=== PATIENT | female | born 1975 | race Caucasian/White ===

== ENCOUNTER 2020-07-04 14:56 | Emergency (ER) | payer SELFPAY ==
[2020-07-04] MEDS ORDERED: diphenhydrAMINE 25 MG Tab PO ONE (14:57)
[2020-07-04] MEDS ORDERED: Sodium Chloride 0.9% 10 ML Syringe FLUSH PRN (15:21)
[2020-07-04] MEDS ORDERED: Sodium Chloride 0.9% 1,000 ML IV ONE (15:21)
[2020-07-04 15:49] LABS: BASE EXCESS ARTERIAL 3 mmol/L ((-2)-(+3)); BICARBONATE,ARTERIAL 24.8 mmol/L (22-26); O2 DELIVERY DEVICE ROOM AIR; O2 SATURATION ARTERIAL 99 % (95-100); PO2 ARTERIAL 99 mmHg (70-100)
--- NOTE | 2020-07-04 15:49 | CR ---
PROCEDURE INFORMATION: Exam: XR Chest, 1 View Exam date and time: 07/04/2020 3:29 PM Age: 45 years old Clinical indication: Other: Chest pain; Additional info: Chest tightness, shortness of breath TECHNIQUE: Imaging protocol: XR of the chest Views: 1 view. COMPARISON: Prior chest radiographs of 05/26/ FINDINGS: Lungs: Hazy increased density in the left lung base laterally. This could be due to mild ground-glass airspace disease versus artifact from overlying soft tissues. Lungs otherwise appear clear radiographically. Lungs are well inflated. Pleural space: No pleural effusions. No pneumothorax. Heart/Mediastinum: No significant cardiomegaly. Bones/joints: No acute abnormality. IMPRESSION: 1. Artifact versus mild ground-glass airspace disease in the left lung base. Recommend clinical correlation. 2. Otherwise, no significant acute abnormality. 3. See above for remaining findings.
[2020-07-04 16:06] LABS: ANION GAP 10.4 mEq/L (7-13); CHLORIDE,CL 89 mmol/L (98-107); SODIUM,NA 125 mmol/L (136-145)
[2020-07-04] MEDS ORDERED: Insulin Regular, Human 100 Units/ML 3 ML Vial IV ONE ×2 (16:26→17:03)
--- NOTE | 2020-07-04 17:14 | EDM.PDOC ---
Scribed by Aleena Otto 07/04/20 1402 for Shashi Gonzalez MD ED HPI GENERAL MEDICAL PROBLEM - General Chief Complaint: General Stated Complaint: BITES ON LEGS AND ALL OVER, TIGHTNESS IN CHEST Time Seen by Provider: 07/04/20 15:11 Source of Information: Reports: Patient, RN, RN Notes Reviewed History Limitations: Reports: No Limitations - History of Present Illness INITIAL COMMENTS - FREE TEXT/NARRATIVE: Patient presents to the ED via POV stating she has bites all over, legs, arms, and belly. States they itch. She has been without her insulin for "at least 2 months". Bedside glucose >500. States she thinks about a month and a half ago she may have had a heart attack or stroke, did not go in to be seen, but states since then she has had some pain in her right arm, hand, chest tightness, and the right leg "doesn't function right, nanci drags". Feet have been swollen. Onset: Gradual Duration: Getting Worse Location: Reports: Generalized Quality: Reports: Ache Severity: Severe Improves with: Reports: None Worsens with: Reports: None Associated Symptoms: Reports: No Other Symptoms - Related Data Allergies Allergy/AdvReac Type Severity Reaction Status Date / Time No Known Allergies Allergy Verified 07/04/20 15:07 Home Meds: Home Meds Insulin Aspart [NovoLOG] 6 units SQ ASDIRECTED 07/04/20 [History] Insulin Glarg,Human.Rec.Analog [Lantus] 10 units SQ BEDTIME 07/04/20 [History] ED ROS GENERAL - Review of Systems Review Of Systems: Comprehensive ROS is negative, except as noted in HPI. ED EXAM, GENERAL - Physical Exam Exam: See Below Exam Limited By: Other (Appears much older than stated age.) General Appearance: Alert, No Apparent Distress, Anxious, Other (Chronically ill appearing.) Eye Exam: Bilateral Eye: EOMI, Normal Inspection, PERRL Ears: Normal External Exam, Hearing Grossly Normal Nose: Normal Inspection, Normal Mucosa, No Blood Throat/Mouth: Normal Lips, Normal Oropharynx, Normal Voice, No Airway Compromise, Other (Dry oral mucosa. Missing several teeth.) Head: Atraumatic, Normocephalic Neck: Normal Inspection, Supple, Non-Tender, Full Range of Motion Respiratory/Chest: No Respiratory Distress, Lungs Clear, Normal Breath Sounds, No Accessory Muscle Use, Chest Non-Tender, Decreased Breath Sounds, Prolonged Expiration. No: Crackles, Rales, Rhonchi, Wheezing, Stridor Cardiovascular: Normal Peripheral Pulses, Regular Rate, Rhythm, No Edema, No Gallop, No JVD, No Murmur, No Rub GI/Abdominal: Normal Bowel Sounds, Soft, Non-Tender Back Exam: Normal Inspection Extremities: Normal Inspection, Normal Range of Motion, Non-Tender, Normal Capillary Refill, No Pedal Edema Neurological: Alert, Oriented, No Motor/Sensory Deficits Psychiatric: Normal Mood Skin Exam: Warm, Dry, Other (Multiple insect bites that appear excoriated.) EKG INTERPRETATION EKG Date: 07/04/20 Time: 15:34 Rhythm: Other (sinus rhythm) Rate (Beats/Min): 67 [place]: Normal P-Wave: Present QRS: Normal ST-T: Normal QT: Normal Comparison: NA - No Prior EKG Course - Vital Signs Last Recorded V/S: Last Vital Signs Temp 97.5 F 07/04/20 15:10 Pulse 77 07/04/20 15:10 Resp 18 07/04/20 15:10 BP 114/69 07/04/20 15:10 Pulse Ox 100 07/04/20 15:10 - Orders/Labs/Meds Orders: Active Orders 24 hr Category Date Time Status Blood Glucose Check, Bedside [] ONETIME Care 07/04/20 15:21 Active Blood Glucose Check, Bedside [] ONETIME Care 07/04/20 16:50 Active EKG 12 Lead [EKG Documentation Completion] [RC] STAT Care 07/04/20 15:20 Active Peripheral IV Care [RC] . DIRECTED Care 07/04/20 15:21 Active CULTURE URINE [RM] Stat Lab 07/04/20 15:24 Received Sodium Chloride 0.9% [Saline Flush] Med 07/04/20 15:21 Active 10 ml FLUSH ASDIRECTED PRN Peripheral IV Insertion Adult [OM.PC] Stat Oth 07/04/20 15:20 Ordered Medication Orders Sodium Chloride (Saline Flush) 10 ml FLUSH ASDIRECTED PRN PRN Reason: Keep Vein Open Last Admin: 07/04/20 15:30 Dose: 10 ml Documented by: NASRA Labs: Laboratory Tests 07/04/20 07/04/20 07/04/20 Range/Units 15:05 15:24 15:24 WBC (5.0-10.0) 10^3/uL RBC (4.2-5.4) 10^6/uL Hgb (12.0-16.0) g/dL Hct (37.0-47.0) % MCV (80-100) fL MCH (27.0-34.0) pg MCHC (33.0-35.0) g/dL Plt Count (150-450) 10^3/uL Neut % (Auto) (42.2-75.2) % Lymph % (Auto) (20.5-50.1) % [place] % (Auto) (2-8) % Eos % (Auto) (1.0-3.0) % Baso % (Auto) (0.0-1.0) % ABG pH (7.35-7.45) ABG pCO2 (35-45) mmHg ABG pO2 (70-100) mmHg ABG HCO3 (22-26) mmol/L ABG O2 Saturation (95-100) % ABG Base Excess ((-2)-(+3)) mmol/L Thai Test O2 Delivery Device Oxygen Flow Rate Sodium (136-145) mmol/L Potassium (3.5-5.1) mmol/L Chloride (98-107) mmol/L Carbon Dioxide (21-32) mmol/L Anion Gap (7-13) mEq/L BUN (7-18) mg/dL Creatinine (0.55-1.02) mg/dL Est Cr Clr Drug Dosing mL/min Estimated GFR (MDRD) BUN/Creatinine Ratio (No establ ref range) Glucose (74-99) mg/dL POC Glucose > 500 H* (70-105) mg/dl Calcium (8.5-10.1) mg/dL Magnesium (1.8-2.4) mg/dL Total Bilirubin (0.2-1.0) mg/dL AST (15-37) U/L ALT (14-59) U/L Alkaline Phosphatase (46-116) U/L Troponin I (0.000-0.056) ng/mL Total Protein (6.4-8.2) g/dL Albumin (3.4-5.0) g/dL Globulin Albumin/Globulin Ratio Urine Color (YELLOW) Urine Appearance (CLEAR) Urine pH (5.0-9.0) Ur Specific [place] (1.005-1.030) Urine Protein (NEGATIVE) Urine Glucose (UA) (NEGATIVE) Urine Ketones (NEGATIVE) Urine Occult Blood (NEGATIVE) Urine Nitrite (NEGATIVE) Urine Bilirubin (NEGATIVE) Urine Urobilinogen (0.2-1.0) mg/dL Ur Leukocyte Esterase (NEGATIVE) Urine RBC /HPF Urine WBC (0-5/HPF) /HPF Ur Epithelial Cells (NOT SEEN) /HPF Urine Bacteria (0-FEW/HPF) /HPF Urine HCG, Qual Negative Urine Opiates Screen Negative (NEGATIVE) Ur Oxycodone Screen Negative (NEGATIVE) Urine Methadone Screen Negative (NEGATIVE) Ur Barbiturates Screen Negative (NEGATIVE) U Tricyclic Antidepress Negative (NEGATIVE) Ur Phencyclidine Scrn Negative (NEGATIVE) Ur Amphetamine Screen Negative (NEGATIVE) U Methamphetamines Scrn Negative (NEGATIVE) Urine MDMA Screen Negative (NEGATIVE) U Benzodiazepines Scrn Negative (NEGATIVE) Urine Cocaine Screen Negative (NEGATIVE) U Marijuana (THC) Screen Negative (NEGATIVE) Ethyl Alcohol (0) mg/dL Ketones 07/04/20 07/04/20 07/04/20 Range/Units 15:24 15:39 15:39 WBC 7.1 (5.0-10.0) 10^3/uL RBC 4.66 (4.2-5.4) 10^6/uL Hgb 12.6 (12.0-16.0) g/dL Hct 35.8 L (37.0-47.0) % MCV 76.8 L (80-100) fL MCH 27.0 (27.0-34.0) pg MCHC 35.2 H (33.0-35.0) g/dL Plt Count 226 (150-450) 10^3/uL Neut % (Auto) 67.8 (42.2-75.2) % Lymph % (Auto) 23.8 (20.5-50.1) % [place] % (Auto) 6.0 (2-8) % Eos % (Auto) 2.0 (1.0-3.0) % Baso % (Auto) 0.4 (0.0-1.0) % ABG pH (7.35-7.45) ABG pCO2 (35-45) mmHg ABG pO2 (70-100) mmHg ABG HCO3 (22-26) mmol/L ABG O2 Saturation (95-100) % ABG Base Excess ((-2)-(+3)) mmol/L Thai Test O2 Delivery Device Oxygen Flow Rate Sodium 125 L (136-145) mmol/L Potassium 4.4 (3.5-5.1) mmol/L Chloride 89 L (98-107) mmol/L Carbon Dioxide 30 (21-32) mmol/L Anion Gap 10.4 (7-13) mEq/L BUN 18 (7-18) mg/dL Creatinine 0.93 (0.55-1.02) mg/dL Est Cr Clr Drug Dosing 74.29 mL/min Estimated GFR (MDRD) > 60 BUN/Creatinine Ratio 19.4 (No establ ref range) Glucose 556 H* (74-99) mg/dL POC Glucose (70-105) mg/dl Calcium 8.9 (8.5-10.1) mg/dL Magnesium 1.8 (1.8-2.4) mg/dL Total Bilirubin 0.3 (0.2-1.0) mg/dL AST 9 L (15-37) U/L ALT 26 (14-59) U/L Alkaline Phosphatase 149 H (46-116) U/L Troponin I < 0.017 (0.000-0.056) ng/mL Total Protein 7.3 (6.4-8.2) g/dL Albumin 3.4 (3.4-5.0) g/dL Globulin 3.9 Albumin/Globulin Ratio 0.9 Urine Color Yellow (YELLOW) Urine Appearance Clear (CLEAR) Urine pH 7.0 (5.0-9.0) Ur Specific [place] 1.015 (1.005-1.030) Urine Protein Negative (NEGATIVE) Urine Glucose (UA) 500 H (NEGATIVE) Urine Ketones Negative (NEGATIVE) Urine Occult Blood Moderate H (NEGATIVE) Urine Nitrite Negative (NEGATIVE) Urine Bilirubin Negative (NEGATIVE) Urine Urobilinogen 0.2 (0.2-1.0) mg/dL Ur Leukocyte Esterase Trace H (NEGATIVE) Urine RBC 0-5 /HPF Urine WBC 0-5 (0-5/HPF) /HPF Ur Epithelial Cells Rare (NOT SEEN) /HPF Urine Bacteria Few (0-FEW/HPF) /HPF Urine HCG, Qual Urine Opiates Screen (NEGATIVE) Ur Oxycodone Screen (NEGATIVE) Urine Methadone Screen (NEGATIVE) Ur Barbiturates Screen (NEGATIVE) U Tricyclic Antidepress (NEGATIVE) Ur Phencyclidine Scrn (NEGATIVE) Ur Amphetamine Screen (NEGATIVE) U Methamphetamines Scrn (NEGATIVE) Urine MDMA Screen (NEGATIVE) U Benzodiazepines Scrn (NEGATIVE) Urine Cocaine Screen (NEGATIVE) U Marijuana (THC) Screen (NEGATIVE) Ethyl Alcohol < 3 (0) mg/dL Ketones Negative 07/04/20 07/04/20 Range/Units 15:50 17:00 WBC (5.0-10.0) 10^3/uL RBC (4.2-5.4) 10^6/uL Hgb (12.0-16.0) g/dL Hct (37.0-47.0) % MCV (80-100) fL MCH (27.0-34.0) pg MCHC (33.0-35.0) g/dL Plt Count (150-450) 10^3/uL Neut % (Auto) (42.2-75.2) % Lymph % (Auto) (20.5-50.1) % [place] % (Auto) (2-8) % Eos % (Auto) (1.0-3.0) % Baso % (Auto) (0.0-1.0) % ABG pH 7.53 H (7.35-7.45) ABG pCO2 30 L (35-45) mmHg ABG pO2 99 (70-100) mmHg ABG HCO3 24.8 (22-26) mmol/L ABG O2 Saturation 99 (95-100) % ABG Base Excess 3 ((-2)-(+3)) mmol/L Thai Test Rb O2 Delivery Device Room air Oxygen Flow Rate 0 Sodium (136-145) mmol/L Potassium (3.5-5.1) mmol/L Chloride (98-107) mmol/L Carbon Dioxide (21-32) mmol/L Anion Gap (7-13) mEq/L BUN (7-18) mg/dL Creatinine (0.55-1.02) mg/dL Est Cr Clr Drug Dosing mL/min Estimated GFR (MDRD) BUN/Creatinine Ratio (No establ ref range) Glucose (74-99) mg/dL POC Glucose 381 H (70-105) mg/dl Calcium (8.5-10.1) mg/dL Magnesium (1.8-2.4) mg/dL Total Bilirubin (0.2-1.0) mg/dL AST (15-37) U/L ALT (14-59) U/L Alkaline Phosphatase (46-116) U/L Troponin I (0.000-0.056) ng/mL Total Protein (6.4-8.2) g/dL Albumin (3.4-5.0) g/dL Globulin Albumin/Globulin Ratio Urine Color (YELLOW) Urine Appearance (CLEAR) Urine pH (5.0-9.0) Ur Specific [place] (1.005-1.030) Urine Protein (NEGATIVE) Urine Glucose (UA) (NEGATIVE) Urine Ketones (NEGATIVE) Urine Occult Blood (NEGATIVE) Urine Nitrite (NEGATIVE) Urine Bilirubin (NEGATIVE) Urine Urobilinogen (0.2-1.0) mg/dL Ur Leukocyte Esterase (NEGATIVE) Urine RBC /HPF Urine WBC (0-5/HPF) /HPF Ur Epithelial Cells (NOT SEEN) /HPF Urine Bacteria (0-FEW/HPF) /HPF Urine HCG, Qual Urine Opiates Screen (NEGATIVE) Ur Oxycodone Screen (NEGATIVE) Urine Methadone Screen (NEGATIVE) Ur Barbiturates Screen (NEGATIVE) U Tricyclic Antidepress (NEGATIVE) Ur Phencyclidine Scrn (NEGATIVE) Ur Amphetamine Screen (NEGATIVE) U Methamphetamines Scrn (NEGATIVE) Urine MDMA Screen (NEGATIVE) U Benzodiazepines Scrn (NEGATIVE) Urine Cocaine Screen (NEGATIVE) U Marijuana (THC) Screen (NEGATIVE) Ethyl Alcohol (0) mg/dL Ketones Meds: Medications Generic Name Dose Route Start Last Admin Trade Name Freq PRN Reason Stop Dose Admin Sodium Chloride 10 ml 07/04/20 15:21 07/04/20 15:30 Saline Flush FLUSH 10 ml ASDIRECTED PRN Administration Keep Vein Open Discontinued Medications Generic Name Dose Route Start Last Admin Trade Name Freq PRN Reason Stop Dose Admin Sodium Chloride 1,000 mls @ 999 mls/hr 07/04/20 15:21 07/04/20 15:47 Normal Saline IV 07/04/20 16:21 999 mls/hr .BOLUS ONE Administration Insulin Human Regular 10 unit 07/04/20 16:26 08/09/20 16:32 Humulin R IV 07/04/20 16:27 10 units ONETIME ONE Administration Insulin Human Regular 5 unit 07/04/20 17:03 Humulin R IV 07/04/20 17:04 ONETIME ONE - Radiology Interpretation [facility]ative[facility] Call: [phone] assistance Online chat: [email or web address] Name: MUKESH GALLEGOS Age: 45Years F Date: 07/04/2020 SSN: -- : [id number] Study: CR CHEST 1V FRONTAL Requesting Physician: SHASHI GONZALEZ Images: 1 Addl Studies: Provided Clinical History: chest tightness, shortness of breath Contrast: Contrast Medium: Contrast Amount: Contrast Method: Page 1 of 2 PROCEDURE INFORMATION: Exam: XR Chest, 1 View Exam date and time: 07/04/2020 3:29 PM Age: 45 years old Clinical indication: Other: Chest pain; Additional info: Chest tightness, sh ortness of breath TECHNIQUE: Imaging protocol: XR of the chest Views: 1 view. COMPARISON: Prior chest radiographs of 05/26/ FINDINGS: Lungs: Hazy increased density in the left lung base laterally. This could be due to mild ground-glass airspace disease versus artifact from overlying soft tissues. Lungs otherwise appear clear radiographically. Lungs are well inflated. Pleural space: No pleural effusions. No pneumothorax. Heart/Mediastinum: No significant cardiomegaly. Bones/joints: No acute abnormality. IMPRESSION: 1. Artifact versus mild ground-glass airspace disease in the left lung base. Recommend clinical correlation. 2. Otherwise, no significant acute abnormality. 3. See above for remaining findings. Thank you for allowing us to participate in the care of your patient. Dictated and Authenticated by: Brenda Mendez MD MUKESH GALLEGOS | Final Radiology Report CONFIDENTIALITY STATEMENT This report is intended only for use by the referring physician, and only in accordance with law. If you received this in error, call [phone]. Page 2 of 2 07/04/2020 3:49 PM Central Time ([place] & [place]) Departure - Departure Time of Disposition: 17:09 Disposition: Home, Self-Care 01 Condition: Fair Clinical Impression: Diabetes mellitus type 2, uncontrolled Qualifiers: Glycemic state: with hyperglycemia Qualified Code(s): E11.65 - Type 2 diabetes mellitus with hyperglycemia Insect bites Qualifiers: Encounter type: initial encounter Site of insect bite: unspecified site Qualified Code(s): W57.XXXA - Bitten or stung by nonvenomous insect and other nonvenomous arthropods, initial encounter - Discharge Information *PRESCRIPTION DRUG MONITORING PROGRAM REVIEWED*: No *COPY OF PRESCRIPTION DRUG MONITORING REPORT IN PATIENT ALICIA: No Instructions: Insect Bite, Adult, [id number], Preventing Mosquito-Borne Illnesses, Type 2 Diabetes Mellitus, Self Care, Adult, [id number], Hyperglycemia, [id number] Forms: ED Department Discharge Additional Instructions: Rx: Benadryl 25mg Call [phone] tomorrow morning, July 04 before 9:00AM to make a same day appointment at [facility] for diabetic and medication management. Sepsis Event Note (ED) - Focused Exam Vital Signs: Vital Signs Temp Pulse Resp BP Pulse Ox 07/04/20 15:10 97.5 F 77 18 114/69 100 - My Orders Last 24 Hours: My Active Orders 07/04/20 15:20 EKG 12 Lead [EKG Documentation Completion] [RC] STAT Peripheral IV Insertion Adult [OM.PC] Stat 07/04/20 15:21 Blood Glucose Check, Bedside [RC] ONETIME Peripheral IV Care [RC] . DIRECTED Sodium Chloride 0.9% [Saline Flush] 10 ml FLUSH ASDIRECTED PRN 07/04/20 15:24 CULTURE URINE [RM] Stat 07/04/20 16:50 Blood Glucose Check, Bedside [RC] ONETIME - Assessment/Plan Last 24 Hours: My Active Orders 07/04/20 15:20 EKG 12 Lead [EKG Documentation Completion] [RC] STAT Peripheral IV Insertion Adult [OM.PC] Stat 07/04/20 15:21 Blood Glucose Check, Bedside [RC] ONETIME Peripheral IV Care [RC] . DIRECTED Sodium Chloride 0.9% [Saline Flush] 10 ml FLUSH ASDIRECTED PRN 07/04/20 15:24 CULTURE URINE [RM] Stat 07/04/20 16:50 Blood Glucose Check, Bedside [RC] ONETIME I have read and agree with the documentation that has been completed regarding this visit. By signing this record, I attest that the documentation was completed in my physical presence and is an accurate record of the encounter.
[2020-07-04] MEDS ORDERED: diphenhydrAMINE 25 MG Tab ONE (17:21)
[2020-07-04 21:24] LABS: O2 FLOW RATE 100
[2020-07-04 21:25] LABS: ALLEN TEST LB
[2020-07-04 21:36] LABS: PCO2 ARTERIAL 30 mmHg (35-45)
== END 2020-07-04 17:34 | disposition home or self-care (01) ==
LOC: DL.ED 14:56
DX: S80.862A Insect bite (nonvenomous), left lower leg, initial encounter (principal); S80.861A Insect bite (nonvenomous), right lower leg, initial encounter; S40.862A Insect bite (nonvenomous) of left upper arm, initial encounter; S40.861A Insect bite (nonvenomous) of right upper arm, initial encounter; S30.861A Insect bite (nonvenomous) of abdominal wall, initial encounter; E11.65 Type 2 diabetes mellitus with hyperglycemia; W57.XXXA Bitten or stung by nonvenomous insect and other nonvenomous arthropods, initial encounter
CPT/HCPCS: 36415; 36600; 71045; 80053; 80305; 80307; 81001; 81025; 82009; 82803; 82962; 83735; 84484; 85025; 87086; 87088; 87186; 93005; 96360; 99284; A9270; J1815; J7030

== ENCOUNTER 2020-09-03 20:04 | Observation (INO) | payer MEDICAID ==
[2020-09-03] MEDS ORDERED: Sodium Chloride 0.9% 1,000 ML IV ONE (20:50)
[2020-09-03] MEDS ORDERED: Insulin Regular, Human 100 Units/ML 3 ML Vial IV ONE (20:50)
[2020-09-03] MEDS ORDERED: Iopamidol 612 MG/ML 100 ML Bottle IVPUSH ONE (20:51)
[2020-09-03] MEDS ORDERED: HYDROmorphone 1 MG/ML Syringe IVPUSH ONE ×2 (20:51→22:52)
[2020-09-03] MEDS ORDERED: Ondansetron 4 MG/2 ML SDV IVPUSH ONE (20:56)
[2020-09-03 20:59] LABS: CHLORIDE,CL 92 mmol/L (98-107); SODIUM,NA 129 mmol/L (136-145)
[2020-09-03] MEDS ORDERED: cefTRIAXone 2 GM in Sodium Chloride 0.9% 100 ML IV ONE (21:56)
--- NOTE | 2020-09-03 21:58 | CT ---
PROCEDURE INFORMATION: Exam: CT Abdomen And Pelvis With Contrast Exam date and time: 09/03/2020 9:22 PM Age: 45 years old Clinical indication: Other: Wbc 16.5; Additional info: Abdominal pain TECHNIQUE: Imaging protocol: Computed tomography of the abdomen and pelvis with intravenous contrast. Radiation optimization: All CT scans at this facility use at least one of these dose optimization techniques: automated exposure control; mA and/or kV adjustment per patient size (includes targeted exams where dose is matched to clinical indication); or iterative reconstruction. Contrast material: [id number]; Contrast volume: 75 ml; Contrast route: INTRAVENOUS (IV); COMPARISON: No relevant prior studies available. FINDINGS: Liver: Mild hepatic steatosis. Gallbladder and bile ducts: Multiple gallstones. Pancreas: Normal. No ductal dilation. Spleen: Normal. No splenomegaly. Adrenals: Minimal nodular thickening right adrenal gland less than 1 cm. Kidneys and ureters: The right kidney is atrophic with respect to the left kidney with the right kidney measuring 9.1 cm and the left kidney measuring 13.7 cm. Stomach and bowel: There is short to moderate length segment of sigmoid wall thickening and inflammation with Katty sigmoid fat stranding. Appendix: No evidence of appendicitis. Intraperitoneal space: Small amount of intraperitoneal fluid. Vasculature: Minimal to moderate atherosclerotic changes of the abdominal aorta and branches. Lymph nodes: Scattered relatively small retroperitoneal lymph nodes. Urinary bladder: The bladder wall is markedly thickened especially anterior probably reactive. Reproductive: In the left adnexa immediately adjacent to the above described inflamed sigmoid colon there is a distended fluid-filled tubular structure which does not appear to represent bowel and may represent a dilated fallopian tube/hydrosalpinx. There is an IUD in place which appears somewhat low in position. 4.2 cm right adnexal cyst with perceptible wall. 2.2 cm complex cystic structure in the left adnexa. Bones/joints: Unremarkable. No acute fracture. Soft tissues: Unremarkable. IMPRESSION: 1. Marked inflammatory changes in the left lower quadrant. Extensive inflammation in the region of the left adnexa where fluid distended tubular structure is identified which may represent hydrosalpinx with possibility of infection/pyosalpinx/pelvic inflammatory disease possible. The adjacent sigmoid colon is also thickened and inflamed. This may be reactive to the adnexal inflammatory changes, however given the presence of a few diverticula in this region, the possibility of additional acute diverticulitis not excluded. 2. Suggest correlation with pelvic ultrasound to better assess the pelvic organs/left adnexa. Also correlate with clinical history. 3. Marked bladder wall thickening nonspecific possibly reactive. 4. IUD in place which appears slightly low in position. 5. Small amount of intraperitoneal fluid. 6. Gallstones. 7. See above for other details.
[2020-09-03] MEDS ORDERED: Azithromycin 250 MG Tab PO ONE (22:54)
--- NOTE | 2020-09-03 23:04 | EDM.PDOC ---
ED HPI GENERAL MEDICAL PROBLEM - General Chief Complaint: Abdominal Pain Stated Complaint: APENDICITIS LEFT SIDE PER PT Time Seen by Provider: 09/03/20 20:15 Source of Information: Reports: Patient, RN History Limitations: Reports: No Limitations - History of Present Illness INITIAL COMMENTS - FREE TEXT/NARRATIVE: ED with c/o let low back and abdominal pain, started yesterday worse tonight. No vomiting. BM's harder lately, Last today. No pain with urination. Has IUD. continual spotting. Left Lower Abdomen Pain Score (Numeric/FACES): 10 - Related Data Allergies Allergy/AdvReac Type Severity Reaction Status Date / Time No Known Allergies Allergy Verified 09/04/20 00:12 Home Meds: Home Meds Insulin Aspart [NovoLOG] See Protocol SQ ASDIRECTED 07/04/20 [History] Insulin Glarg,Human.Rec.Analog [Lantus] 10 units SQ BEDTIME 07/04/20 [History] Aspirin [Aspirin EC] 81 mg PO DAILY 09/04/20 [History] DULoxetine [Cymbalta] 30 mg PO DAILY 09/04/20 [History] Diclofenac Sodium 50 mg PO TID 09/04/20 [History] Simvastatin 20 mg PO BEDTIME 09/04/20 [History] hydrOXYzine HCL [Hydroxyzine HCl] 25 mg PO TID PRN 09/04/20 [History] Past Medical History HEENT History: Reports: None Cardiovascular History: Reports: None Respiratory History: Reports: None Gastrointestinal History: Reports: None Genitourinary History: Reports: None 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: , Other (See Below) Other 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 History: c 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 Musculoskeletal History: Reports: None Neurological History: Reports: Seizure Psychiatric History: Reports: Anxiety, Panic Attack Endocrine/Metabolic History: Reports: Diabetes, Type II Social & Family History - Family History Family Medical History: Noncontributory - Tobacco Use Smoking Status *Q: Current Every Day Smoker Years of Tobacco use: 30 Packs/Tins Daily: 1 - Caffeine Use Caffeine Use: Reports: Coffee - Recreational Drug Use Recreational Drug Use: Yes Drug Use in Last 12 Months: Yes Recreational Drug Type: Reports: Methamphetamine Recreational Drug Use Frequency: Patient Refuses To Answer ED ROS GENERAL - Review of Systems Review Of Systems: Comprehensive ROS is negative, except as noted in HPI. ED EXAM, GI/ABD - Physical Exam Exam: See Below Exam Limited By: No Limitations General Appearance: Alert, Moderate Distress, Thin Eyes: Bilateral: EOMI Ears: Normal External Exam Nose: Normal Inspection Throat/Mouth: Normal Inspection Head: Atraumatic, Normocephalic Neck: Normal Inspection Respiratory/Chest: No Respiratory Distress, Lungs Clear, Normal Breath Sounds Cardiovascular: Normal Peripheral Pulses, Regular Rate, Rhythm GI/Abdominal Exam: Normal Bowel Sounds, Soft, Tender (general greater left lower) (Female) Exam: Normal External Exam, Adnexal Tenderness (mild left), Cervix Motion Tenderness, Vaginal Bleeding (darkd brown small amount) Back Exam: Full Range of Motion Extremities: Normal Range of Motion Neurological: Alert, Oriented, Normal Cognition Psychiatric: Anxious Skin Exam: Warm, Dry, Intact, Wound/Incision (multiple superficial scabs to arms and ankles) Course - Vital Signs Last Recorded V/S: Last Vital Signs Temp 98.6 F 09/04/20 03:41 Pulse 95 09/03/20 23:58 Resp 16 09/03/20 23:58 BP 103/62 09/03/20 23:58 Pulse Ox 99 09/03/20 23:58 - Orders/Labs/Meds Orders: Active Orders 24 hr Category Date Time Status Admission Diagnosis [ADT] Stat ADT 09/03/20 23:20 Ordered Admission Status [Patient Status] [ADT] Routine ADT 09/03/20 23:20 Active CHLAMYDIA AND GONORRHEA BY TMA Stat Lab 09/03/20 20:20 Received CULTURE BLOOD [BC] Stat Lab 09/03/20 20:28 Received CULTURE BLOOD [BC] Stat Lab 09/03/20 20:55 Received CULTURE URINE [RM] Stat Lab 09/03/20 20:30 Received Insulin Regular, Human [HumuLIN R] 100 unit Med 09/03/20 21:58 Active Sodium Chloride 0.9% [Normal Saline] 99 ml IV TITRATE Blood Culture x2 Reflex Set [OM.PC] Stat Oth 09/03/20 20:17 Ordered Medication Orders Acetaminophen (Tylenol) 650 mg PO Q4H PRN PRN Reason: Pain Last Admin: 09/04/20 02:25 Dose: 650 mg Documented by: CAREMOR Dextrose/Water (Dextrose 50% In Water) 25 ml IVPUSH ASDIRECTED PRN PRN Reason: Hypoglycemia Enoxaparin Sodium (Lovenox) 40 mg SUBCUT DAILY [facility] Glucagon (Glucagen) 1 mg IM ONETIME PRN PRN Reason: Hypoglycemia Insulin Human Regular 100 unit (/ Sodium Chloride) 100 mls @ 7.121 mls/hr IV TITRATE ONE; Protocol Stop: 09/04/20 12:00 Last Titration: 09/04/20 02:21 Dose: 0 units/kg/hr, 0 mls/hr Documented by: GUALBERTO Cosigned by: JERMAINE Titration: 09/04/20 01:42 Dose: 0.17 units/kg/hr, 11.9 mls/hr Documented by: GUALBERTO Cosigned by: WILMA Titration: 09/04/20 00:38 Dose: 0.11 units/kg/hr, 7.9 mls/hr Documented by: GUALBERTO Cosigned by: JERMAINE Titration: 09/03/20 23:27 Dose: 0.07 units/kg/hr, 5.3 mls/hr Documented by: DEONNA Cosigned by: WILMA Admin: 09/03/20 22:29 Dose: 0.1 units/kg/hr, 7.121 mls/hr Documented by: ROXANE Cosigned by: DEONNA Piperacillin Sod/Tazobactam (Sod 3.375 gm/ Sodium Chloride) 100 mls @ 200 mls/ hr IV Q6H [facility] Last Infusion: 09/04/20 02:21 Dose: 200 mls/hr Documented by: Admin: 09/04/20 01:44 Dose: 200 mls/hr Documented by: GUALBERTO Insulin Glargine (Lantus) 18 unit SUBCUT BEDTIME [facility] Insulin Human Lispro (Humalog) 0 unit SUBCUT QIDACANDBED [facility]; Protocol Insulin Human Lispro (Humalog) 6 unit SUBCUT WITHMEALSANDBED [facility] Ondansetron HCl (Zofran Odt) 4 mg PO Q6H PRN PRN Reason: nausea, able to take PO Ondansetron HCl (Zofran) 4 mg IVPUSH Q6H PRN PRN Reason: Nausea/Vomiting Last Admin: 09/04/20 02:25 Dose: 4 mg Documented by: GUALBERTO Oxycodone HCl (Oxycodone) 5 mg PO ONETIME PRN PRN Reason: Pain Last Admin: 09/04/20 03:35 Dose: 5 mg Documented by: CAREMOR Senna/Docusate Sodium (Senna Plus) 1 tab PO BEDTIME PRN PRN Reason: Constipation Labs: Laboratory Tests 09/03/20 09/03/20 09/03/20 Range/Units 20:28 20:28 20:28 WBC 16.2 H (5.0-10.0) 10^3/uL RBC 5.29 (4.2-5.4) 10^6/uL Hgb 14.9 D (12.0-16.0) g/dL Hct 42.6 (37.0-47.0) % MCV 80.5 D (80-100) fL MCH 28.2 (27.0-34.0) pg MCHC 35.0 (33.0-35.0) g/dL Plt Count 287 (150-450) 10^3/uL Neut % (Auto) 84.3 H (42.2-75.2) % Lymph % (Auto) 8.7 L (20.5-50.1) % [place] % (Auto) 6.5 (2-8) % Eos % (Auto) 0.3 L (1.0-3.0) % Baso % (Auto) 0.2 (0.0-1.0) % Sodium 129 L (136-145) mmol/L Potassium 4.0 (3.5-5.1) mmol/L Chloride 92 L (98-107) mmol/L Carbon Dioxide 25 (21-32) mmol/L Anion Gap 16.0 H (7-13) mEq/L BUN 15 (7-18) mg/dL Creatinine 0.85 (0.55-1.02) mg/dL Est Cr Clr Drug Dosing 81.28 mL/min Estimated GFR (MDRD) > 60 BUN/Creatinine Ratio 17.6 (No establ ref range) Glucose 368 H (74-99) mg/dL POC Glucose (70-105) mg/dl Lactic Acid 1.9 (0.4-2.0) mmol/L Calcium 9.1 (8.5-10.1) mg/dL Total Bilirubin 1.5 H (0.2-1.0) mg/dL AST 19 (15-37) U/L ALT 35 (14-59) U/L Alkaline Phosphatase 101 (46-116) U/L Total Protein 8.1 (6.4-8.2) g/dL Albumin 3.4 (3.4-5.0) g/dL Globulin 4.7 Albumin/Globulin Ratio 0.7 Urine Color (YELLOW) Urine Appearance (CLEAR) Urine pH (5.0-9.0) Ur Specific [place] (1.005-1.030) Urine Protein (NEGATIVE) Urine Glucose (UA) (NEGATIVE) Urine Ketones (NEGATIVE) Urine Occult Blood (NEGATIVE) Urine Nitrite (NEGATIVE) Urine Bilirubin (NEGATIVE) Urine Urobilinogen (0.2-1.0) mg/dL Ur Leukocyte Esterase (NEGATIVE) Urine RBC /HPF Urine WBC (0-5/HPF) /HPF Ur Epithelial Cells (NOT SEEN) /HPF Amorphous Sediment (NOT SEEN) /HPF Urine Bacteria (0-FEW/HPF) /HPF Urine Mucus (NOT SEEN) /LPF Urine Opiates Screen (NEGATIVE) Ur Oxycodone Screen (NEGATIVE) Urine Methadone Screen (NEGATIVE) Ur Barbiturates Screen (NEGATIVE) U Tricyclic Antidepress (NEGATIVE) Ur Phencyclidine Scrn (NEGATIVE) Ur Amphetamine Screen (NEGATIVE) U Methamphetamines Scrn (NEGATIVE) Urine MDMA Screen (NEGATIVE) U Benzodiazepines Scrn (NEGATIVE) Urine Cocaine Screen (NEGATIVE) U Marijuana (THC) Screen (NEGATIVE) SARS CoV-2 RNA Rapid STEFANIE (NEGATIVE) 09/03/20 09/03/20 09/03/20 Range/Units 20:30 20:30 20:33 WBC (5.0-10.0) 10^3/uL RBC (4.2-5.4) 10^6/uL Hgb (12.0-16.0) g/dL Hct (37.0-47.0) % MCV (80-100) fL MCH (27.0-34.0) pg MCHC (33.0-35.0) g/dL Plt Count (150-450) 10^3/uL Neut % (Auto) (42.2-75.2) % Lymph % (Auto) (20.5-50.1) % [place] % (Auto) (2-8) % Eos % (Auto) (1.0-3.0) % Baso % (Auto) (0.0-1.0) % Sodium (136-145) mmol/L Potassium (3.5-5.1) mmol/L Chloride (98-107) mmol/L Carbon Dioxide (21-32) mmol/L Anion Gap (7-13) mEq/L BUN (7-18) mg/dL Creatinine (0.55-1.02) mg/dL Est Cr Clr Drug Dosing mL/min Estimated GFR (MDRD) BUN/Creatinine Ratio (No establ ref range) Glucose (74-99) mg/dL POC Glucose 417 H* (70-105) mg/dl Lactic Acid (0.4-2.0) mmol/L Calcium (8.5-10.1) mg/dL Total Bilirubin (0.2-1.0) mg/dL AST (15-37) U/L ALT (14-59) U/L Alkaline Phosphatase (46-116) U/L Total Protein (6.4-8.2) g/dL Albumin (3.4-5.0) g/dL Globulin Albumin/Globulin Ratio Urine Color Light yellow (YELLOW) Urine Appearance Cloudy (CLEAR) Urine pH 5.0 (5.0-9.0) Ur Specific [place] 1.020 (1.005-1.030) Urine Protein Trace H (NEGATIVE) Urine Glucose (UA) 500 H (NEGATIVE) Urine Ketones 80 H (NEGATIVE) Urine Occult Blood Moderate H (NEGATIVE) Urine Nitrite Positive H (NEGATIVE) Urine Bilirubin Negative (NEGATIVE) Urine Urobilinogen 0.2 (0.2-1.0) mg/dL Ur Leukocyte Esterase Negative (NEGATIVE) Urine RBC 10-20 H /HPF Urine WBC 5-10 H (0-5/HPF) /HPF Ur Epithelial Cells Few (NOT SEEN) /HPF Amorphous Sediment Few (NOT SEEN) /HPF Urine Bacteria Moderate H (0-FEW/HPF) /HPF Urine Mucus Few H (NOT SEEN) /LPF Urine Opiates Screen Negative (NEGATIVE) Ur Oxycodone Screen Negative (NEGATIVE) Urine Methadone Screen Negative (NEGATIVE) Ur Barbiturates Screen Negative (NEGATIVE) U Tricyclic Antidepress Negative (NEGATIVE) Ur Phencyclidine Scrn Negative (NEGATIVE) Ur Amphetamine Screen Negative (NEGATIVE) U Methamphetamines Scrn Positive H (NEGATIVE) Urine MDMA Screen Negative (NEGATIVE) U Benzodiazepines Scrn Negative (NEGATIVE) Urine Cocaine Screen Negative (NEGATIVE) U Marijuana (THC) Screen Negative (NEGATIVE) SARS CoV-2 RNA Rapid STEFANIE (NEGATIVE) 09/03/20 09/03/20 09/03/20 Range/Units 21:45 22:54 23:25 WBC (5.0-10.0) 10^3/uL RBC (4.2-5.4) 10^6/uL Hgb (12.0-16.0) g/dL Hct (37.0-47.0) % MCV (80-100) fL MCH (27.0-34.0) pg MCHC (33.0-35.0) g/dL Plt Count (150-450) 10^3/uL Neut % (Auto) (42.2-75.2) % Lymph % (Auto) (20.5-50.1) % [place] % (Auto) (2-8) % Eos % (Auto) (1.0-3.0) % Baso % (Auto) (0.0-1.0) % Sodium (136-145) mmol/L Potassium (3.5-5.1) mmol/L Chloride (98-107) mmol/L Carbon Dioxide (21-32) mmol/L Anion Gap (7-13) mEq/L BUN (7-18) mg/dL Creatinine (0.55-1.02) mg/dL Est Cr Clr Drug Dosing mL/min Estimated GFR (MDRD) BUN/Creatinine Ratio (No establ ref range) Glucose (74-99) mg/dL POC Glucose 343 H 262 H (70-105) mg/dl Lactic Acid (0.4-2.0) mmol/L Calcium (8.5-10.1) mg/dL Total Bilirubin (0.2-1.0) mg/dL AST (15-37) U/L ALT (14-59) U/L Alkaline Phosphatase (46-116) U/L Total Protein (6.4-8.2) g/dL Albumin (3.4-5.0) g/dL Globulin Albumin/Globulin Ratio Urine Color (YELLOW) Urine Appearance (CLEAR) Urine pH (5.0-9.0) Ur Specific [place] (1.005-1.030) Urine Protein (NEGATIVE) Urine Glucose (UA) (NEGATIVE) Urine Ketones (NEGATIVE) Urine Occult Blood (NEGATIVE) Urine Nitrite (NEGATIVE) Urine Bilirubin (NEGATIVE) Urine Urobilinogen (0.2-1.0) mg/dL Ur Leukocyte Esterase (NEGATIVE) Urine RBC /HPF Urine WBC (0-5/HPF) /HPF Ur Epithelial Cells (NOT SEEN) /HPF Amorphous Sediment (NOT SEEN) /HPF Urine Bacteria (0-FEW/HPF) /HPF Urine Mucus (NOT SEEN) /LPF Urine Opiates Screen (NEGATIVE) Ur Oxycodone Screen (NEGATIVE) Urine Methadone Screen (NEGATIVE) Ur Barbiturates Screen (NEGATIVE) U Tricyclic Antidepress (NEGATIVE) Ur Phencyclidine Scrn (NEGATIVE) Ur Amphetamine Screen (NEGATIVE) U Methamphetamines Scrn (NEGATIVE) Urine MDMA Screen (NEGATIVE) U Benzodiazepines Scrn (NEGATIVE) Urine Cocaine Screen (NEGATIVE) U Marijuana (THC) Screen (NEGATIVE) SARS CoV-2 RNA Rapid STEFANIE Negative (NEGATIVE) Meds: Medications Generic Name Dose Route Start Last Admin Trade Name Freq PRN Reason Stop Dose Admin Acetaminophen 650 mg 09/03/20 23:58 09/04/20 02:25 Tylenol PO 650 mg Q4H PRN Administration Pain Dextrose/Water 25 ml 09/03/20 23:58 Dextrose 50% In Water IVPUSH ASDIRECTED PRN Hypoglycemia Enoxaparin Sodium 40 mg 09/04/20 09:00 Lovenox SUBCUT DAILY [facility] Glucagon 1 mg 09/03/20 23:58 Glucagen IM ONETIME PRN Hypoglycemia Insulin Human Regular 100 unit 100 mls @ 7.121 mls/hr 09/03/20 21:58 09/04/20 02:21 / Sodium Chloride IV 09/04/20 12:00 0 units/kg/hr TITRATE ONE 0 mls/hr Titration Protocol 0.1 UNITS/KG/HR Piperacillin Sod/Tazobactam 100 mls @ 200 mls/hr 09/04/20 01:00 09/04/20 02:21 Sod 3.375 gm/ Sodium Chloride IV Infused Q6H [facility] Infusion Insulin Glargine 18 unit 09/04/20 21:00 Lantus SUBCUT BEDTIME JOSE ANTONIO Insulin Human Lispro 0 unit 09/04/20 07:00 Humalog SUBCUT QIDACANDBED [facility] Protocol Insulin Human Lispro 6 unit 09/04/20 08:00 Humalog SUBCUT WITHMEALSANDBED [facility] Ondansetron HCl 4 mg 10/09/20 23:58 Zofran Odt PO Q6H PRN nausea, able to take PO Ondansetron HCl 4 mg 09/03/20 23:58 09/04/20 02:25 Zofran IVPUSH 4 mg Q6H PRN Administration Nausea/Vomiting Oxycodone HCl 5 mg 09/04/20 02:57 09/04/20 03:35 Oxycodone PO 5 mg ONETIME PRN Administration Pain Senna/Docusate Sodium 1 tab 09/03/20 23:58 Senna Plus PO BEDTIME PRN Constipation Discontinued Medications Generic Name Dose Route Start Last Admin Trade Name Freq PRN Reason Stop Dose Admin Azithromycin 1,000 mg 09/03/20 22:54 09/03/20 23:04 Zithromax PO 09/03/20 22:55 1,000 mg ONETIME ONE Administration Hydromorphone HCl 1 mg 09/03/20 20:51 09/03/20 21:05 Dilaudid IVPUSH 09/03/20 20:52 1 mg ONETIME ONE Administration Hydromorphone HCl 1 mg 09/03/20 22:52 09/03/20 23:04 Dilaudid IVPUSH 09/03/20 22:53 1 mg ONETIME ONE Administration Sodium Chloride 1,000 mls @ 999 mls/hr 09/03/20 20:50 09/03/20 21:04 Normal Saline IV 09/03/20 21:50 999 mls/hr .BOLUS ONE Administration Ceftriaxone Sodium 2 gm/ 100 mls @ 200 mls/hr 09/03/20 21:56 09/03/20 22:09 Sodium Chloride IV 09/03/20 22:25 200 mls/hr ONETIME ONE Administration Insulin Human Regular 10 unit 09/03/20 20:50 09/03/20 21:05 Humulin R IV 09/03/20 20:51 10 unit ONETIME ONE Administration Iopamidol 100 ml 09/03/20 20:51 09/03/20 21:06 Isovue-300 (61%) IVPUSH 09/03/20 20:52 100 ml ONETIME ONE Administration Ondansetron HCl 4 mg 09/03/20 20:56 09/03/20 21:04 Zofran IVPUSH 09/03/20 20:57 4 mg ONETIME ONE Administration Departure - Departure Time of Disposition: 23:03 Disposition: Refer to Observation Condition: Good Clinical Impression: PID (acute pelvic inflammatory disease), Diverticulitis, Positive urine drug screen Diabetes mellitus type 2, uncontrolled Qualifiers: Glycemic state: with hyperglycemia Qualified Code(s): E11.65 - Type 2 diabetes mellitus with hyperglycemia UTI (urinary tract infection) Qualifiers: Urinary tract infection type: acute cystitis Hematuria presence: with hematuria Qualified Code(s): N30.01 - Acute cystitis with hematuria - Discharge Information *PRESCRIPTION DRUG MONITORING PROGRAM REVIEWED*: No *COPY OF PRESCRIPTION DRUG MONITORING REPORT IN PATIENT ALICIA: No Sepsis Event Note (ED) - Evaluation Sepsis Screening Result: No Definite Risk - Focused Exam Vital Signs: Vital Signs Temp Pulse Resp BP Pulse Ox 09/03/20 20:10 97 F 97 18 136/88 96 - My Orders Last 24 Hours: My Active Orders 09/03/20 20:17 Blood Culture x2 Reflex Set [OM.PC] Stat 09/03/20 20:20 CHLAMYDIA AND GONORRHEA BY [facility]MA Stat 09/03/20 20:28 CULTURE BLOOD [BC] Stat 09/03/20 20:30 CULTURE URINE [RM] Stat 09/03/20 20:55 CULTURE BLOOD [BC] Stat 09/03/20 21:58 Insulin Regular, Human [HumuLIN R] 100 unit Sodium Chloride 0.9% [Normal Saline] 99 ml IV TITRATE 09/03/20 23:20 Admission Diagnosis [ADT] Stat Admission Status [Patient Status] [ADT] Routine - Assessment/Plan Last 24 Hours: My Active Orders 09/03/20 20:17 Blood Culture x2 Reflex Set [OM.PC] Stat 09/03/20 20:20 CHLAMYDIA AND GONORRHEA BY TMA Stat 09/03/20 20:28 CULTURE BLOOD [BC] Stat 09/03/20 20:30 CULTURE URINE [RM] Stat 09/03/20 20:55 CULTURE BLOOD [BC] Stat 09/03/20 21:58 Insulin Regular, Human [HumuLIN R] 100 unit Sodium Chloride 0.9% [Normal Saline] 99 ml IV TITRATE 09/03/20 23:20 Admission Diagnosis [ADT] Stat Admission Status [Patient Status] [ADT] Routine
[2020-09-03] MEDS ORDERED: Ondansetron 4 MG/2 ML SDV IVPUSH PRN (23:58)
[2020-09-03] MEDS ORDERED: Ondansetron 4 MG Tab.DIS PO PRN (23:58)
[2020-09-03] MEDS ORDERED: Glucagon,Human Recombinant 1 MG Vial IM PRN (23:58)
[2020-09-03] MEDS ORDERED: 50% Dextrose in Water 50 ML Syringe IVPUSH PRN (23:58)
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
[2020-09-04] MEDS: Piperacillin/Tazobactam 3.375 GM in Sodium Chloride 0.9% 100 ML IV SCH ×4 (01:44→18:36)
[2020-09-04] MEDS: Acetaminophen 325 MG Tab PO PRN ×3 (02:25→18:35)
[2020-09-04] MEDS ORDERED: oxyCODONE 5 MG Tab PO PRN (02:57)
[2020-09-04 06:52] LABS: ANION GAP 14.6 mEq/L (7-13); CHLORIDE,CL 98 mmol/L (98-107); SODIUM,NA 134 mmol/L (136-145)
[2020-09-04] MEDS: Insulin Lispro 100 Units/ML 3 ML Vial SUBCUT SCH ×8 (09:11→21:04)
[2020-09-04] MEDS: Enoxaparin 40 MG/0.4 ML Syringe SUBCUT SCH (09:12)
--- NOTE | 2020-09-04 11:27 | PCM.PN ---
- General Info Date of Service: 09/04/20 Admission Dx/Problem (Free Text): Admission Diagnosis/Problem Admission Diagnosis/Problem Abdominal pain Subjective Update: Patient is a 45-year-old female with medical history significant for type 2 diabetes on insulin regimen, diabetic neuropathy, and anxiety who is admitted for acute diverticulitis, PID, and hyperglycemia. Reports pain is improved. Has nausea this morning but no vomiting. Denies fevers. Always feels cold. No chest pain, shortness of breath, dysuria, or hematuria. No d/c. - Patient Data Vitals - Most Recent: Last Vital Signs Temp 97.9 F 09/04/20 08:18 Pulse 88 09/04/20 08:18 Resp 20 09/04/20 08:18 BP 120/62 09/04/20 08:18 Pulse Ox 99 09/04/20 08:18 Weight - Most Recent: 157 lb I&O - Last 24 Hours: Intake & Output 09/03/20 09/04/20 09/04/20 22:59 06:59 14:59 Intake Total 60 Balance 60 Lab Results Last 24 Hours: Laboratory Results - last 24 hr 09/03/20 09/03/20 09/03/20 Range/Units 20:28 20:28 20:28 WBC 16.2 H (5.0-10.0) 10^3/uL RBC 5.29 (4.2-5.4) 10^6/uL Hgb 14.9 D (12.0-16.0) g/dL Hct 42.6 (37.0-47.0) % MCV 80.5 D (80-100) fL MCH 28.2 (27.0-34.0) pg MCHC 35.0 (33.0-35.0) g/dL Plt Count 287 (150-450) 10^3/uL Neut % (Auto) 84.3 H (42.2-75.2) % Lymph % (Auto) 8.7 L (20.5-50.1) % Cotton % (Auto) 6.5 (2-8) % Eos % (Auto) 0.3 L (1.0-3.0) % Baso % (Auto) 0.2 (0.0-1.0) % Sodium 129 L (136-145) mmol/L Potassium 4.0 (3.5-5.1) mmol/L Chloride 92 L (98-107) mmol/L Carbon Dioxide 25 (21-32) mmol/L Anion Gap 16.0 H (7-13) mEq/L BUN 15 (7-18) mg/dL Creatinine 0.85 (0.55-1.02) mg/dL Est Cr Clr Drug Dosing 81.28 mL/min Estimated GFR (MDRD) > 60 BUN/Creatinine Ratio 17.6 (No establ ref range) Glucose 368 H (74-99) mg/dL POC Glucose (70-105) mg/dl Lactic Acid 1.9 (0.4-2.0) mmol/L Calcium 9.1 (8.5-10.1) mg/dL Phosphorus (2.6-4.7) mg/dL Magnesium (1.8-2.4) mg/dL Total Bilirubin 1.5 H (0.2-1.0) mg/dL Direct Bilirubin (0.0-0.2) mg/dL Indirect Bilirubin AST 19 (15-37) U/L ALT 35 (14-59) U/L Alkaline Phosphatase 101 (46-116) U/L Total Protein 8.1 (6.4-8.2) g/dL Albumin 3.4 (3.4-5.0) g/dL Globulin 4.7 Albumin/Globulin Ratio 0.7 Urine Color (YELLOW) Urine Appearance (CLEAR) Urine pH (5.0-9.0) Ur Specific Hillister (1.005-1.030) Urine Protein (NEGATIVE) Urine Glucose (UA) (NEGATIVE) Urine Ketones (NEGATIVE) Urine Occult Blood (NEGATIVE) Urine Nitrite (NEGATIVE) Urine Bilirubin (NEGATIVE) Urine Urobilinogen (0.2-1.0) mg/dL Ur Leukocyte Esterase (NEGATIVE) Urine RBC /HPF Urine WBC (0-5/HPF) /HPF Ur Epithelial Cells (NOT SEEN) /HPF Amorphous Sediment (NOT SEEN) /HPF Urine Bacteria (0-FEW/HPF) /HPF Urine Mucus (NOT SEEN) /LPF Urine Opiates Screen (NEGATIVE) Ur Oxycodone Screen (NEGATIVE) Urine Methadone Screen (NEGATIVE) Ur Barbiturates Screen (NEGATIVE) U Tricyclic Antidepress (NEGATIVE) Ur Phencyclidine Scrn (NEGATIVE) Ur Amphetamine Screen (NEGATIVE) U Methamphetamines Scrn (NEGATIVE) Urine MDMA Screen (NEGATIVE) U Benzodiazepines Scrn (NEGATIVE) Urine Cocaine Screen (NEGATIVE) U Marijuana (THC) Screen (NEGATIVE) HIV-1 Antibody (NONREACTIVE) HIV-2 Antibody (NONREACTIVE) HIV P24 Antigen (NONREACTIVE) SARS CoV-2 RNA Rapid STEFANIE (NEGATIVE) 09/03/20 09/03/20 09/03/20 Range/Units 20:30 20:30 20:33 WBC (5.0-10.0) 10^3/uL RBC (4.2-5.4) 10^6/uL Hgb (12.0-16.0) g/dL Hct (37.0-47.0) % MCV (80-100) fL MCH (27.0-34.0) pg MCHC (33.0-35.0) g/dL Plt Count (150-450) 10^3/uL Neut % (Auto) (42.2-75.2) % Lymph % (Auto) (20.5-50.1) % Cotton % (Auto) (2-8) % Eos % (Auto) (1.0-3.0) % Baso % (Auto) (0.0-1.0) % Sodium (136-145) mmol/L Potassium (3.5-5.1) mmol/L Chloride (98-107) mmol/L Carbon Dioxide (21-32) mmol/L Anion Gap (7-13) mEq/L BUN (7-18) mg/dL Creatinine (0.55-1.02) mg/dL Est Cr Clr Drug Dosing mL/min Estimated GFR (MDRD) BUN/Creatinine Ratio (No establ ref range) Glucose (74-99) mg/dL POC Glucose 417 H* (70-105) mg/dl Lactic Acid (0.4-2.0) mmol/L Calcium (8.5-10.1) mg/dL Phosphorus (2.6-4.7) mg/dL Magnesium (1.8-2.4) mg/dL Total Bilirubin (0.2-1.0) mg/dL Direct Bilirubin (0.0-0.2) mg/dL Indirect Bilirubin AST (15-37) U/L ALT (14-59) U/L Alkaline Phosphatase (46-116) U/L Total Protein (6.4-8.2) g/dL Albumin (3.4-5.0) g/dL Globulin Albumin/Globulin Ratio Urine Color Light yellow (YELLOW) Urine Appearance Cloudy (CLEAR) Urine pH 5.0 (5.0-9.0) Ur Specific Hill[place] 1.020 (1.005-1.030) Urine Protein Trace H (NEGATIVE) Urine Glucose (UA) 500 H (NEGATIVE) Urine Ketones 80 H (NEGATIVE) Urine Occult Blood Moderate H (NEGATIVE) Urine Nitrite Positive H (NEGATIVE) Urine Bilirubin Negative (NEGATIVE) Urine Urobilinogen 0.2 (0.2-1.0) mg/dL Ur Leukocyte Esterase Negative (NEGATIVE) Urine RBC 10-20 H /HPF Urine WBC 5-10 H (0-5/HPF) /HPF Ur Epithelial Cells Few (NOT SEEN) /HPF Amorphous Sediment Few (NOT SEEN) /HPF Urine Bacteria Moderate H (0-FEW/HPF) /HPF Urine Mucus Few H (NOT SEEN) /LPF Urine Opiates Screen Negative (NEGATIVE) Ur Oxycodone Screen Negative (NEGATIVE) Urine Methadone Screen Negative (NEGATIVE) Ur Barbiturates Screen Negative (NEGATIVE) U Tricyclic Antidepress Negative (NEGATIVE) Ur Phencyclidine Scrn Negative (NEGATIVE) Ur Amphetamine Screen Negative (NEGATIVE) U Methamphetamines Scrn Positive H (NEGATIVE) Urine MDMA Screen Negative (NEGATIVE) U Benzodiazepines Scrn Negative (NEGATIVE) Urine Cocaine Screen Negative (NEGATIVE) U Marijuana (THC) Screen Negative (NEGATIVE) HIV-1 Antibody (NONREACTIVE) HIV-2 Antibody (NONREACTIVE) HIV P24 Antigen (NONREACTIVE) SARS CoV-2 RNA Rapid STEFANIE (NEGATIVE) 09/03/20 09/03/20 09/03/20 Range/Units 21:45 22:54 23:25 WBC (5.0-10.0) 10^3/uL RBC (4.2-5.4) 10^6/uL Hgb (12.0-16.0) g/dL Hct (37.0-47.0) % MCV (80-100) fL MCH (27.0-34.0) pg MCHC (33.0-35.0) g/dL Plt Count (150-450) 10^3/uL Neut % (Auto) (42.2-75.2) % Lymph % (Auto) (20.5-50.1) % Cotton % (Auto) (2-8) % Eos % (Auto) (1.0-3.0) % Baso % (Auto) (0.0-1.0) % Sodium (136-145) mmol/L Potassium (3.5-5.1) mmol/L Chloride (98-107) mmol/L Carbon Dioxide (21-32) mmol/L Anion Gap (7-13) mEq/L BUN (7-18) mg/dL Creatinine (0.55-1.02) mg/dL Est Cr Clr Drug Dosing mL/min Estimated GFR (MDRD) BUN/Creatinine Ratio (No establ ref range) Glucose (74-99) mg/dL POC Glucose 343 H 262 H (70-105) mg/dl Lactic Acid (0.4-2.0) mmol/L Calcium (8.5-10.1) mg/dL Phosphorus (2.6-4.7) mg/dL Magnesium (1.8-2.4) mg/dL Total Bilirubin (0.2-1.0) mg/dL Direct Bilirubin (0.0-0.2) mg/dL Indirect Bilirubin AST (15-37) U/L ALT (14-59) U/L Alkaline Phosphatase (46-116) U/L Total Protein (6.4-8.2) g/dL Albumin (3.4-5.0) g/dL Globulin Albumin/Globulin Ratio Urine Color (YELLOW) Urine Appearance (CLEAR) Urine pH (5.0-9.0) Ur Specific Hill[place] (1.005-1.030) Urine Protein (NEGATIVE) Urine Glucose (UA) (NEGATIVE) Urine Ketones (NEGATIVE) Urine Occult Blood (NEGATIVE) Urine Nitrite (NEGATIVE) Urine Bilirubin (NEGATIVE) Urine Urobilinogen (0.2-1.0) mg/dL Ur Leukocyte Esterase (NEGATIVE) Urine RBC /HPF Urine WBC (0-5/HPF) /HPF Ur Epithelial Cells (NOT SEEN) /HPF Amorphous Sediment (NOT SEEN) /HPF Urine Bacteria (0-FEW/HPF) /HPF Urine Mucus (NOT SEEN) /LPF Urine Opiates Screen (NEGATIVE) Ur Oxycodone Screen (NEGATIVE) Urine Methadone Screen (NEGATIVE) Ur Barbiturates Screen (NEGATIVE) U Tricyclic Antidepress (NEGATIVE) Ur Phencyclidine Scrn (NEGATIVE) Ur Amphetamine Screen (NEGATIVE) U Methamphetamines Scrn (NEGATIVE) Urine MDMA Screen (NEGATIVE) U Benzodiazepines Scrn (NEGATIVE) Urine Cocaine Screen (NEGATIVE) U Marijuana (THC) Screen (NEGATIVE) HIV-1 Antibody (NONREACTIVE) HIV-2 Antibody (NONREACTIVE) HIV P24 Antigen (NONREACTIVE) SARS CoV-2 RNA Rapid STEFANIE Negative (NEGATIVE) 09/04/20 09/04/20 09/04/20 Range/Units 00:35 01:35 02:18 WBC (5.0-10.0) 10^3/uL RBC (4.2-5.4) 10^6/uL Hgb (12.0-16.0) g/dL Hct (37.0-47.0) % MCV (80-100) fL MCH (27.0-34.0) pg MCHC (33.0-35.0) g/dL Plt Count (150-450) 10^3/uL Neut % (Auto) (42.2-75.2) % Lymph % (Auto) (20.5-50.1) % Cotton % (Auto) (2-8) % Eos % (Auto) (1.0-3.0) % Baso % (Auto) (0.0-1.0) % Sodium (136-145) mmol/L Potassium (3.5-5.1) mmol/L Chloride (98-107) mmol/L Carbon Dioxide (21-32) mmol/L Anion Gap (7-13) mEq/L BUN (7-18) mg/dL Creatinine (0.55-1.02) mg/dL Est Cr Clr Drug Dosing mL/min Estimated GFR (MDRD) BUN/Creatinine Ratio (No establ ref range) Glucose (74-99) mg/dL POC Glucose 237 H 228 H 140 H (70-105) mg/dl Lactic Acid (0.4-2.0) mmol/L Calcium (8.5-10.1) mg/dL Phosphorus (2.6-4.7) mg/dL Magnesium (1.8-2.4) mg/dL Total Bilirubin (0.2-1.0) mg/dL Direct Bilirubin (0.0-0.2) mg/dL Indirect Bilirubin AST (15-37) U/L ALT (14-59) U/L Alkaline Phosphatase (46-116) U/L Total Protein (6.4-8.2) g/dL Albumin (3.4-5.0) g/dL Globulin Albumin/Globulin Ratio Urine Color (YELLOW) Urine Appearance (CLEAR) Urine pH (5.0-9.0) Ur Specific [place] (1.005-1.030) Urine Protein (NEGATIVE) Urine Glucose (UA) (NEGATIVE) Urine Ketones (NEGATIVE) Urine Occult Blood (NEGATIVE) Urine Nitrite (NEGATIVE) Urine Bilirubin (NEGATIVE) Urine Urobilinogen (0.2-1.0) mg/dL Ur Leukocyte Esterase (NEGATIVE) Urine RBC /HPF Urine WBC (0-5/HPF) /HPF Ur Epithelial Cells (NOT SEEN) /HPF Amorphous Sediment (NOT SEEN) /HPF Urine Bacteria (0-FEW/HPF) /HPF Urine Mucus (NOT SEEN) /LPF Urine Opiates Screen (NEGATIVE) Ur Oxycodone Screen (NEGATIVE) Urine Methadone Screen (NEGATIVE) Ur Barbiturates Screen (NEGATIVE) U Tricyclic Antidepress (NEGATIVE) Ur Phencyclidine Scrn (NEGATIVE) Ur Amphetamine Screen (NEGATIVE) U Methamphetamines Scrn (NEGATIVE) Urine MDMA Screen (NEGATIVE) U Benzodiazepines Scrn (NEGATIVE) Urine Cocaine Screen (NEGATIVE) U Marijuana (THC) Screen (NEGATIVE) HIV-1 Antibody (NONREACTIVE) HIV-2 Antibody (NONREACTIVE) HIV P24 Antigen (NONREACTIVE) SARS CoV-2 RNA Rapid STEFANIE (NEGATIVE) 09/04/20 09/04/20 09/04/20 Range/Units 03:28 05:45 05:45 WBC 12.8 H (5.0-10.0) 10^3/uL RBC 4.35 (4.2-5.4) 10^6/uL Hgb 12.3 D (12.0-16.0) g/dL Hct 35.4 L (37.0-47.0) % MCV 81.4 (80-100) fL MCH 28.3 (27.0-34.0) pg MCHC 34.7 (33.0-35.0) g/dL Plt Count 225 (150-450) 10^3/uL Neut % (Auto) (42.2-75.2) % Lymph % (Auto) (20.5-50.1) % Cotton % (Auto) (2-8) % Eos % (Auto) (1.0-3.0) % Baso % (Auto) (0.0-1.0) % Sodium 134 L (136-145) mmol/L Potassium 3.6 (3.5-5.1) mmol/L Chloride 98 (98-107) mmol/L Carbon Dioxide 25 (21-32) mmol/L Anion Gap 14.6 H (7-13) mEq/L BUN 14 (7-18) mg/dL Creatinine 0.66 (0.55-1.02) mg/dL Est Cr Clr Drug Dosing 106.63 mL/min Estimated GFR (MDRD) > 60 BUN/Creatinine Ratio (No establ ref range) Glucose 170 H (74-99) mg/dL POC Glucose 124 H (70-105) mg/dl Lactic Acid (0.4-2.0) mmol/L Calcium 8.4 L (8.5-10.1) mg/dL Phosphorus 3.1 (2.6-4.7) mg/dL Magnesium 1.8 (1.8-2.4) mg/dL Total Bilirubin 0.7 (0.2-1.0) mg/dL Direct Bilirubin 0.2 (0.0-0.2) mg/dL Indirect Bilirubin 0.5 AST 50 H (15-37) U/L ALT 44 (14-59) U/L Alkaline Phosphatase 92 (46-116) U/L Total Protein 6.5 (6.4-8.2) g/dL Albumin 2.6 L (3.4-5.0) g/dL Globulin 3.9 Albumin/Globulin Ratio 0.67 Urine Color (YELLOW) Urine Appearance (CLEAR) Urine pH (5.0-9.0) Ur Specific Hillister (1.005-1.030) Urine Protein (NEGATIVE) Urine Glucose (UA) (NEGATIVE) Urine Ketones (NEGATIVE) Urine Occult Blood (NEGATIVE) Urine Nitrite (NEGATIVE) Urine Bilirubin (NEGATIVE) Urine Urobilinogen (0.2-1.0) mg/dL Ur Leukocyte Esterase (NEGATIVE) Urine RBC /HPF Urine WBC (0-5/HPF) /HPF Ur Epithelial Cells (NOT SEEN) /HPF Amorphous Sediment (NOT SEEN) /HPF Urine Bacteria (0-FEW/HPF) /HPF Urine Mucus (NOT SEEN) /LPF Urine Opiates Screen (NEGATIVE) Ur Oxycodone Screen (NEGATIVE) Urine Methadone Screen (NEGATIVE) Ur Barbiturates Screen (NEGATIVE) U Tricyclic Antidepress (NEGATIVE) Ur Phencyclidine Scrn (NEGATIVE) Ur Amphetamine Screen (NEGATIVE) U Methamphetamines Scrn (NEGATIVE) Urine MDMA Screen (NEGATIVE) U Benzodiazepines Scrn (NEGATIVE) Urine Cocaine Screen (NEGATIVE) U Marijuana (THC) Screen (NEGATIVE) HIV-1 Antibody (NONREACTIVE) HIV-2 Antibody (NONREACTIVE) HIV P24 Antigen (NONREACTIVE) SARS CoV-2 RNA Rapid STEFANIE (NEGATIVE) 09/04/20 09/04/20 09/04/20 Range/Units 05:45 08:01 11:06 WBC (5.0-10.0) 10^3/uL RBC (4.2-5.4) 10^6/uL Hgb (12.0-16.0) g/dL Hct (37.0-47.0) % MCV (80-100) fL MCH (27.0-34.0) pg MCHC (33.0-35.0) g/dL Plt Count (150-450) 10^3/uL Neut % (Auto) (42.2-75.2) % Lymph % (Auto) (20.5-50.1) % Cotton % (Auto) (2-8) % Eos % (Auto) (1.0-3.0) % Baso % (Auto) (0.0-1.0) % Sodium (136-145) mmol/L Potassium (3.5-5.1) mmol/L Chloride (98-107) mmol/L Carbon Dioxide (21-32) mmol/L Anion Gap (7-13) mEq/L BUN (7-18) mg/dL Creatinine (0.55-1.02) mg/dL Est Cr Clr Drug Dosing mL/min Estimated GFR (MDRD) BUN/Creatinine Ratio (No establ ref range) Glucose (74-99) mg/dL POC Glucose 199 H 237 H (70-105) mg/dl Lactic Acid (0.4-2.0) mmol/L Calcium (8.5-10.1) mg/dL Phosphorus (2.6-4.7) mg/dL Magnesium (1.8-2.4) mg/dL Total Bilirubin (0.2-1.0) mg/dL Direct Bilirubin (0.0-0.2) mg/dL Indirect Bilirubin AST (15-37) U/L ALT (14-59) U/L Alkaline Phosphatase (46-116) U/L Total Protein (6.4-8.2) g/dL Albumin (3.4-5.0) g/dL Globulin Albumin/Globulin Ratio Urine Color (YELLOW) Urine Appearance (CLEAR) Urine pH (5.0-9.0) Ur Specific Hillister (1.005-1.030) Urine Protein (NEGATIVE) Urine Glucose (UA) (NEGATIVE) Urine Ketones (NEGATIVE) Urine Occult Blood (NEGATIVE) Urine Nitrite (NEGATIVE) Urine Bilirubin (NEGATIVE) Urine Urobilinogen (0.2-1.0) mg/dL Ur Leukocyte Esterase (NEGATIVE) Urine RBC /HPF Urine WBC (0-5/HPF) /HPF Ur Epithelial Cells (NOT SEEN) /HPF Amorphous Sediment (NOT SEEN) /HPF Urine Bacteria (0-FEW/HPF) /HPF Urine Mucus (NOT SEEN) /LPF Urine Opiates Screen (NEGATIVE) Ur Oxycodone Screen (NEGATIVE) Urine Methadone Screen (NEGATIVE) Ur Barbiturates Screen (NEGATIVE) U Tricyclic Antidepress (NEGATIVE) Ur Phencyclidine Scrn (NEGATIVE) Ur Amphetamine Screen (NEGATIVE) U Methamphetamines Scrn (NEGATIVE) Urine MDMA Screen (NEGATIVE) U Benzodiazepines Scrn (NEGATIVE) Urine Cocaine Screen (NEGATIVE) U Marijuana (THC) Screen (NEGATIVE) HIV-1 Antibody Non-reactive (NONREACTIVE) HIV-2 Antibody Non-reactive (NONREACTIVE) HIV P24 Antigen Non-reactive (NONREACTIVE) SARS CoV-2 RNA Rapid STEFANIE (NEGATIVE) Antwon Results Last 24 Hours: Microbiology 09/03/20 22:53 Wet Prep - Final Vagina Med Orders - Current: Current Medications Acetaminophen (Tylenol) 650 mg PO Q4H PRN PRN Reason: Pain Last Admin: 09/04/20 02:25 Dose: 650 mg Documented by: Dextrose/Water (Dextrose 50% In Water) 25 ml IVPUSH ASDIRECTED PRN PRN Reason: Hypoglycemia Enoxaparin Sodium (Lovenox) 40 mg SUBCUT DAILY JOSE ANTONIO Last Admin: 09/04/20 09:12 Dose: 40 mg Documented by: Glucagon (Glucagen) 1 mg IM ONETIME PRN PRN Reason: Hypoglycemia Insulin Human Regular 100 unit (/ Sodium Chloride) 100 mls @ 7.121 mls/hr IV TITRATE ONE; Protocol Stop: 10/10/20 12:00 Last Titration: 09/04/20 02:21 Dose: 0 units/kg/hr, 0 mls/hr Documented by: Piperacillin Sod/Tazobactam (Sod 3.375 gm/ Sodium Chloride) 100 mls @ 200 mls/hr IV Q6H COUNTS INCLUDE 234 BEDS AT THE [facility] Last Admin: 09/04/20 06:25 Dose: 200 mls/hr Documented by: Insulin Glargine (Lantus) 18 unit SUBCUT BEDTIME COUNTS INCLUDE 234 BEDS AT THE [facility] Insulin Human Lispro (Humalog) 0 unit SUBCUT QIDACANDBED COUNTS INCLUDE 234 BEDS AT THE [facility]; Protocol Last Admin: 09/04/20 09:12 Dose: 3 units Documented by: Insulin Human Lispro (Humalog) 6 unit SUBCUT WITHMEALSANDBED COUNTS INCLUDE 234 BEDS AT THE [facility] Last Admin: 09/04/20 09:11 Dose: 6 units Documented by: Ondansetron HCl (Zofran Odt) 4 mg PO Q6H PRN PRN Reason: nausea, able to take PO Ondansetron HCl (Zofran) 4 mg IVPUSH Q6H PRN PRN Reason: Nausea/Vomiting Last Admin: 09/04/20 02:25 Dose: 4 mg Documented by: Oxycodone HCl (Oxycodone) 5 mg PO ONETIME PRN PRN Reason: Pain Last Admin: 09/04/20 03:35 Dose: 5 mg Documented by: Senna/Docusate Sodium (Senna Plus) 1 tab PO BEDTIME PRN PRN Reason: Constipation Discontinued Medications Azithromycin (Zithromax) 1,000 mg PO ONETIME ONE Stop: 09/03/20 22:55 Last Admin: 09/03/20 23:04 Dose: 1,000 mg Documented by: Hydromorphone HCl (Dilaudid) 1 mg IVPUSH ONETIME ONE Stop: 09/03/20 20:52 Last Admin: 09/03/20 21:05 Dose: 1 mg Documented by: Hydromorphone HCl (Dilaudid) 1 mg IVPUSH ONETIME ONE Stop: 09/03/20 22:53 Last Admin: 09/03/20 23:04 Dose: 1 mg Documented by: Sodium Chloride (Normal Saline) 1,000 mls @ 999 mls/hr IV .BOLUS ONE Stop: 09/03/20 21:50 Last Admin: 09/03/20 21:04 Dose: 999 mls/hr Documented by: Ceftriaxone Sodium 2 gm/ (Sodium Chloride) 100 mls @ 200 mls/hr IV ONETIME ONE Stop: 09/03/20 22:25 Last Admin: 09/03/20 22:09 Dose: 200 mls/hr Documented by: Insulin Human Regular (Humulin R) 10 unit IV ONETIME ONE Stop: 09/03/20 20:51 Last Admin: 09/03/20 21:05 Dose: 10 unit Documented by: Iopamidol (Isovue-300 (61%)) 100 ml IVPUSH ONETIME ONE Stop: 09/03/20 20:52 Last Admin: 09/03/20 21:06 Dose: 100 ml Documented by: Ondansetron HCl (Zofran) 4 mg IVPUSH ONETIME ONE Stop: 09/03/20 20:57 Last Admin: 09/03/20 21:04 Dose: 4 mg Documented by: - Exam General: Alert, Oriented, Cooperative, Mild Distress HEENT: Pupils Equal, Pupils Reactive, Mucous Membr. Moist/[place]: Supple Lungs: Clear to Auscultation, Normal Respiratory Effort Cardiovascular: Regular Rate, Regular Rhythm GI/Abdominal Exam: Normal Bowel Sounds, Soft, Non-Tender, No Distention, Tender (Mild tenderness with no guarding or rebound. ) Extremities: Normal Inspection, Non-Tender, No Pedal Edema Skin: Warm, Dry, Intact Wound/Incisions: Healing Well (Scabs on legs.) Neurological: No New Focal Deficit Psy/Mental Status: Alert, Normal Affect, Normal Mood Sepsis Event Note - Evaluation Sepsis Screening Result: No Definite Risk - Focused Exam Vital Signs: Vital Signs Temp Pulse Resp BP BP Pulse Ox Pulse Ox 09/04/20 08:18 97.9 F 88 20 120/62 99 09/04/20 03:41 98.6 F 09/03/20 23:58 98.6 F 95 16 103/62 103/65 99 99 - Problem List & Annotations (1) Diabetes mellitus type 2, uncontrolled SNOMED Code(s): 072009808, 106299314 Code(s): E11.65 - TYPE 2 DIABETES MELLITUS WITH HYPERGLYCEMIA Status: Acute Current Visit: No Qualifiers: Glycemic state: with hyperglycemia Qualified Code(s): E11.65 - Type 2 di abetes mellitus with hyperglycemia (2) Diverticulitis SNOMED Code(s): 604188043 Code(s): K57.92 - DVTRCLI OF INTEST, PART UNSP, W/O PERF OR ABSCESS W/O BLEED Status: Acute Current Visit: No (3) PID (acute pelvic inflammatory disease) SNOMED Code(s): 867194286 Code(s): N73.0 - ACUTE PARAMETRITIS AND PELVIC CELLULITIS Status: Acute Current Visit: No (4) Positive urine drug screen SNOMED Code(s): 203587105, 461129406 Code(s): R82.5 - ELEVATED URINE LEVELS OF DRUG/MEDS/BIOL SUBST Status: Acute Current Visit: No (5) UTI (urinary tract infection) SNOMED Code(s): 52968936 Code(s): N39.0 - URINARY TRACT INFECTION, SITE NOT SPECIFIED Status: Acute Current Visit: No Qualifiers: Urinary tract infection type: acute cystitis Hematuria presence: with hematuria Qualified Code(s): N30.01 - Acute cystitis with hematuria - Problem List Review Problem List Initiated/Reviewed/Updated: Yes - My Orders Last 24 Hours: My Active Orders 09/03/20 23:58 Blood Glucose Check, Bedside [RC] WITHMEALSANDBED Diabetes Education [RC] Click to Edit Notify Provider [RC] PRN Oxygen Therapy [RC] PRN Up ad Huyn [RC] ASDIRECTED Vital Signs [RC] 00,04,08,12,16,20 Acetaminophen [TylenoL] 650 mg PO Q4H PRN Dextrose 50% in Water 25 ml IVPUSH ASDIRECTED PRN Docusate Sodium/Sennosides [Senna Plus] 1 tab PO BEDTIME PRN Glucagon,Human Recombinant [GlucaGen] 1 mg IM ONETIME PRN Ondansetron [Zofran ODT] 4 mg PO Q6H PRN Ondansetron [Zofran] 4 mg IVPUSH Q6H PRN Resuscitation Status Routine 09/03/20 23:59 Intake and Output [RC] QSHIFT 09/04/20 01:00 Piperacillin/Tazobactam [Zosyn] 3.375 gm Sodium Chloride 0.9% [Normal Saline] 100 ml IV Q6H 09/04/20 02:57 oxyCODONE 5 mg PO ONETIME PRN 09/04/20 07:00 Insulin Lispro [HumaLOG] See Protocol SUBCUT QIDACANDBED 09/04/20 08:00 Insulin Lispro [HumaLOG] 6 unit SUBCUT WITHMEALSANDBED 09/04/20 09:00 Enoxaparin [Lovenox] 40 mg SUBCUT DAILY 09/04/20 09:28 Pelvis Non OB Ltd [US] Routine 09/04/20 21:00 Insulin Glarg,Human.Rec.Analog [LantUS] 18 unit SUBCUT BEDTIME - Plan Plan:: #Type 2 diabetes, poorly controlled. Patient with blood glucose of Was started on insulin drip with blood glucose improving to 262 Sliding scale insulin hypoglycemia protocol Continue 6 units of Humalog with meals and schedule 18 units of Lantus 18 units at bedtime Diabetic diet Monitor and replace electrolytes #Pelvic inflammatory disease: CT findings of "marked inflammatory changes in the left lower quadrant. Extensive inflammation in the region of the left adnexa where fluid-distended tubular structure is identified which may represent hydrosalpinx with possibility of infection/pyosalpinx/pelvic inflammatory disease possible. " The adjacent sigmoid colon is also thickened and inflamed. This may be reactive to the adnexal inflammatory changes, however given the presence of diffuse diverticula in this region, the possibility of additional acute diverticulitis is not excluded. Pelvic ultrasound pending May need REGISTERED OCCUPATIONAL THERAPIST evaluation depending on ultrasound findings Received azithromycin and Rocephin in the ED #Acute sigmoid diverticulitis: Patient with finding of "The adjacent sigmoid colon is also thickened and inflamed. This may be reactive to the adnexal inflammatory changes, however given the presence of diffuse diverticula in this region, the possibility of additional acute diverticulitis is not excluded." No finding of abscess or perforation. WBC improving. Continue Zosyn #UTI: UA is positive for nitrites and WBC. -Continue Zosyn -Urine culture PPx: DVT: Lovenox GI: Diabetic diet Code status: Full code
--- NOTE | 2020-09-04 14:12 | US ---
PROCEDURE INFORMATION: Exam: US Pelvis Limited, Transabdominal Exam date and time: 09/04/2020 12:57 PM Age: 45 years old Clinical indication: Abnormal findings; Abnormal imaging test; Additional info: Probable hydrosalphinx. TECHNIQUE: Imaging protocol: Real-time transabdominal pelvic ultrasound with image documentation. Limited exam. COMPARISON: CT Abdomen Pelvis w Cont 09/03/2020 9:22 PM See transvaginal pelvic ultrasound report which was performed at the same time.
[2020-09-04] MEDS: Insulin Glarg,Human.Rec.Analog 100 Unit/ML SUBCUT SCH (21:04)
[2020-09-05] MEDS: Piperacillin/Tazobactam 3.375 GM in Sodium Chloride 0.9% 100 ML IV SCH ×4 (00:43→20:22)
[2020-09-05] MEDS: Acetaminophen 325 MG Tab PO PRN ×4 (00:44→23:35)
[2020-09-05 06:09] LABS: ANION GAP 12.3 mEq/L (7-13); CHLORIDE,CL 101 mmol/L (98-107); SODIUM,NA 138 mmol/L (136-145)
[2020-09-05] MEDS: Insulin Lispro 100 Units/ML 3 ML Vial SUBCUT SCH ×8 (08:45→21:05)
[2020-09-05] MEDS: Enoxaparin 40 MG/0.4 ML Syringe SUBCUT SCH (09:42)
--- NOTE | 2020-09-05 11:01 | PCM.PN ---
- General Info Date of Service: 09/05/20 Admission Dx/Problem (Free Text): Admission Diagnosis/Problem Admission Diagnosis/Problem Abdominal pain Subjective Update: Patient is a 45-year-old female with medical history significant for type 2 diabetes on insulin regimen, diabetic neuropathy, and anxiety who is admitted for acute diverticulitis, PID, and hyperglycemia. Today, urine culture is positive for G- bacilli. Reports pain is improved; well managed with acetaminophen. Denies fevers. Always feels cold. No chest pain, shortness of breath, dysuria, or hematuria. No d/c. - Patient Data Vitals - Most Recent: Last Vital Signs Temp 98.7 F 09/05/20 08:00 Pulse 78 09/05/20 08:00 Resp 16 09/05/20 08:00 BP 87/46 L 09/05/20 08:00 Pulse Ox 99 09/05/20 08:00 Weight - Most Recent: 157 lb I&O - Last 24 Hours: Intake & Output 09/04/20 09/05/20 09/05/20 22:59 06:59 14:59 Intake Total 200 Balance 200 Lab Results Last 24 Hours: Laboratory Results - last 24 hr 09/04/20 09/04/20 09/04/20 Range/Units 11:06 16:56 20:55 WBC (5.0-10.0) 10^3/uL RBC (4.2-5.4) 10^6/uL Hgb (12.0-16.0) g/dL Hct (37.0-47.0) % MCV (80-100) fL MCH (27.0-34.0) pg MCHC (33.0-35.0) g/dL Plt Count (150-450) 10^3/uL Sodium (136-145) mmol/L Potassium (3.5-5.1) mmol/L Chloride (98-107) mmol/L Carbon Dioxide (21-32) mmol/L Anion Gap (7-13) mEq/L BUN (7-18) mg/dL Creatinine (0.55-1.02) mg/dL Est Cr Clr Drug Dosing mL/min Estimated GFR (MDRD) Glucose (74-99) mg/dL POC Glucose 237 H 181 H 203 H (70-105) mg/dl Calcium (8.5-10.1) mg/dL 09/05/20 09/05/20 Range/Units 05:40 05:40 WBC 9.8 (5.0-10.0) 10^3/uL RBC 4.34 (4.2-5.4) 10^6/uL Hgb 12.2 (12.0-16.0) g/dL Hct 35.8 L (37.0-47.0) % MCV 82.5 (80-100) fL MCH 28.1 (27.0-34.0) pg MCHC 34.1 (33.0-35.0) g/dL Plt Count 229 (150-450) 10^3/uL Sodium 138 (136-145) mmol/L Potassium 3.3 L (3.5-5.1) mmol/L Chloride 101 (98-107) mmol/L Carbon Dioxide 28 (21-32) mmol/L Anion Gap 12.3 (7-13) mEq/L BUN 9 (7-18) mg/dL Creatinine 0.53 L (0.55-1.02) mg/dL Est Cr Clr Drug Dosing 132.78 mL/min Estimated GFR (MDRD) > 60 Glucose 126 H (74-99) mg/dL POC Glucose (70-105) mg/dl Calcium 8.4 L (8.5-10.1) mg/dL Antwon Results Last 24 Hours: Microbiology 09/03/20 20:30 Urine Culture - Preliminary Urine, Voided 09/03/20 20:55 Aerobic Blood Culture - Preliminary Blood - Venous - Iv Start NO GROWTH AFTER 1 DAY Anaerobic Blood Culture - Preliminary NO GROWTH AFTER 1 DAY 09/03/20 20:28 Aerobic Blood Culture - Preliminary Blood - Arm, Left NO GROWTH AFTER 1 DAY Anaerobic Blood Culture - Preliminary NO GROWTH AFTER 1 DAY Med Orders - Current: Current Medications Acetaminophen (Tylenol) 650 mg PO Q4H PRN PRN Reason: Pain Last Admin: 09/05/20 06:51 Dose: 650 mg Documented by: Dextrose/Water (Dextrose 50% In Water) 25 ml IVPUSH ASDIRECTED PRN PRN Reason: Hypoglycemia Enoxaparin Sodium (Lovenox) 40 mg SUBCUT DAILY JOSE ANTONIO Last Admin: 09/05/20 09:42 Dose: 40 mg Documented by: Glucagon (Glucagen) 1 mg IM ONETIME PRN PRN Reason: Hypoglycemia Piperacillin Sod/Tazobactam (Sod 3.375 gm/ Sodium Chloride) 100 mls @ 200 mls/hr IV Q6H [facility] Last Admin: 09/05/20 06:48 Dose: 200 mls/hr Documented by: Insulin Glargine (Lantus) 18 unit SUBCUT BEDTIME [facility] Last Admin: 09/04/20 21:04 Dose: 18 units Documented by: Insulin Human Lispro (Humalog) 0 unit SUBCUT QIDACANDBED [facility]; Protocol Last Admin: 09/05/20 09:33 Dose: Not Given Documented by: Insulin Human Lispro (Humalog) 6 unit SUBCUT WITHMEALSANDBED [facility] Last Admin: 09/05/20 08:45 Dose: 6 units Documented by: Ondansetron HCl (Zofran Odt) 4 mg PO Q6H PRN PRN Reason: nausea, able to take PO Ondansetron HCl (Zofran) 4 mg IVPUSH Q6H PRN PRN Reason: Nausea/Vomiting Last Admin: 09/04/20 02:25 Dose: 4 mg Documented by: Oxycodone HCl (Oxycodone) 5 mg PO ONETIME PRN PRN Reason: Pain Last Admin: 09/04/20 03:35 Dose: 5 mg Documented by: Senna/Docusate Sodium (Senna Plus) 1 tab PO BEDTIME PRN PRN Reason: Constipation Sodium Chloride (Saline Flush) 10 ml FLUSH ASDIRECTED PRN PRN Reason: Keep Vein Open Discontinued Medications Azithromycin (Zithromax) 1,000 mg PO ONETIME ONE Stop: 09/03/20 22:55 Last Admin: 09/03/20 23:04 Dose: 1,000 mg Documented by: Hydromorphone HCl (Dilaudid) 1 mg IVPUSH ONETIME ONE Stop: 09/03/20 20:52 Last Admin: 09/03/20 21:05 Dose: 1 mg Documented by: Hydromorphone HCl (Dilaudid) 1 mg IVPUSH ONETIME ONE Stop: 09/03/20 22:53 Last Admin: 09/03/20 23:04 Dose: 1 mg Documented by: Sodium Chloride (Normal Saline) 1,000 mls @ 999 mls/hr IV .BOLUS ONE Stop: 09/03/20 21:50 Last Admin: 09/03/20 21:04 Dose: 999 mls/hr Documented by: Ceftriaxone Sodium 2 gm/ (Sodium Chloride) 100 mls @ 200 mls/hr IV ONETIME ONE Stop: 09/03/20 22:25 Last Admin: 09/03/20 22:09 Dose: 200 mls/hr Documented by: Insulin Human Regular 100 unit (/ Sodium Chloride) 100 mls @ 7.121 mls/hr IV TITRATE ONE; Protocol Stop: 09/04/20 12:00 Last Titration: 09/04/20 02:21 Dose: 0 units/kg/hr, 0 mls/hr Documented by: Insulin Human Regular (Humulin R) 10 unit IV ONETIME ONE Stop: 09/03/20 20:51 Last Admin: 09/03/20 21:05 Dose: 10 unit Documented by: Iopamidol (Isovue-300 (61%)) 100 ml IVPUSH ONETIME ONE Stop: 09/03/20 20:52 Last Admin: 09/03/20 21:06 Dose: 100 ml Documented by: Ondansetron HCl (Zofran) 4 mg IVPUSH ONETIME ONE Stop: 09/03/20 20:57 Last Admin: 09/03/20 21:04 Dose: 4 mg Documented by: - Exam General: Alert, Oriented, Cooperative, Mild Distress HEENT: Pupils Equal, Pupils Reactive, Mucous Membr. Moist/[place] Neck: Supple Lungs: Clear to Auscultation, Normal Respiratory Effort GI/Abdominal Exam: Normal Bowel Sounds, Soft, Tender (Worse in left lower quadrant without guarding or rebound. ) Extremities: Normal Inspection, Non-Tender, No Pedal Edema Skin: Warm, Dry, Intact Wound/Incisions: Healing Well Neurological: No New Focal Deficit Psy/Mental Status: Alert, Normal Affect, Normal Mood Sepsis Event Note - Evaluation Sepsis Screening Result: No Definite Risk - Focused Exam Vital Signs: Vital Signs Temp Pulse Resp BP BP Pulse Ox 09/05/20 08:00 98.7 F 78 16 87/46 L 99 09/05/20 05:30 97.7 F 74 16 100/47 L 09/05/20 01:00 99.3 F 88 16 104/60 - Problem List & Annotations (1) Diabetes mellitus type 2, uncontrolled SNOMED Code(s): 144348689, 402361384 Code(s): E11.65 - TYPE 2 DIABETES MELLITUS WITH HYPERGLYCEMIA Status: Acute Current Visit: No Qualifiers: Glycemic state: with hyperglycemia Qualified Code(s): E11.65 - Type 2 diabetes mellitus with hyperglycemia (2) Diverticulitis SNOMED Code(s): 775267577 Code(s): K57.92 - DVTRCLI OF INTEST, PART UNSP, W/O PERF OR ABSCESS W/O BLEED Status: Acute Current Visit: No (3) PID (acute pelvic inflammatory disease) SNOMED Code(s): 576220635 Code(s): N73.0 - ACUTE PARAMETRITIS AND PELVIC CELLULITIS Status: Acute Current Visit: No (4) Positive urine drug screen SNOMED Code(s): 151100805, 586096872 Code(s): R82.5 - ELEVATED URINE LEVELS OF DRUG/MEDS/BIOL SUBST Status: Acute Current Visit: No (5) UTI (urinary tract infection) SNOMED Code(s): 03522935 Code(s): N39.0 - URINARY TRACT INFECTION, SITE NOT SPECIFIED Status: Acute Current Visit: No Qualifiers: Urinary tract infection type: acute cystitis Hematuria presence: with hematuria Qualified Code(s): N30.01 - Acute cystitis with hematuria - Problem List Review Problem List Initiated/Reviewed/Updated: Yes - My Orders Last 24 Hours: My Active Orders 09/04/20 13:00 Transvaginal Non OB [US] Routine 09/04/20 13:11 Peripheral IV Care [RC] 09,21 Sodium Chloride 0.9% [Saline Flush] 10 ml FLUSH ASDIRECTED PRN Peripheral IV Insertion Adult [OM.PC] Routine 09/04/20 21:00 Insulin Glarg,Human.Rec.Analog [LantUS] 18 unit SUBCUT BEDTIME - Plan Plan:: #Type 2 diabetes, poorly controlled. Patient with blood glucose of Was started on insulin drip with blood glucose improving to 262 Sliding scale insulin hypoglycemia protocol Continue 6 units of Humalog with meals and schedule 18 units of Lantus 18 units at bedtime Diabetic diet Monitor and replace electrolytes #Pelvic inflammatory disease: CT findings of "marked inflammatory changes in the left lower quadrant. Extensive inflammation in the region of the left adnexa where fluid-distended tubular structure is identified which may represent hydrosalpinx with possibility of infection/pyosalpinx/pelvic inflammatory disease possible. " The adjacent sigmoid colon is also thickened and inflamed. This may be reactive to the adnexal inflammatory changes, however given the presence of diffuse diverticula in this region, the possibility of additional acute diverticulitis is not excluded. Pelvic ultrasound showing possible hemorrhagic cyst; Hb stable. Received azithromycin and Rocephin in the ED -Continue Zosyn. #Acute sigmoid diverticulitis: Patient with finding of "The adjacent sigmoid colon is also thickened and inflamed. This may be reactive to the adnexal inflammatory changes, however given the presence of diffuse diverticula in this region, the possibility of additional acute diverticulitis is not excluded." No finding of abscess or perforation. WBC improving. Continue Zosyn #UTI: UA is positive for nitrites and WBC. Urine culture positive for G- rods. -Continue Zosyn -Urine culture PPx: DVT: Lovenox GI: Diabetic diet Code status: Full code
[2020-09-05] MEDS ORDERED: Potassium Chloride 10 MEQ Tab.ER PO ONE (11:03)
[2020-09-05] MEDS: Nicotine 14 MG/24 Hr Patch TRDERM SCH (15:19)
[2020-09-05] MEDS ORDERED: Magnesium Hydroxide 400 MG/5 ML Susp 30 ML Cup PO PRN (18:50)
[2020-09-05] MEDS: Sodium Chloride 0.9% 10 ML Syringe FLUSH PRN ×2 (20:21→21:00)
[2020-09-05] MEDS: Insulin Glarg,Human.Rec.Analog 100 Unit/ML SUBCUT SCH (21:06)
[2020-09-06] MEDS: Sodium Chloride 0.9% 10 ML Syringe FLUSH PRN ×3 (00:57→06:38)
[2020-09-06] MEDS: Piperacillin/Tazobactam 3.375 GM in Sodium Chloride 0.9% 100 ML IV SCH ×2 (00:59→06:02)
[2020-09-06] MEDS: Acetaminophen 325 MG Tab PO PRN ×2 (08:10→12:15)
[2020-09-06] MEDS: Nicotine 14 MG/24 Hr Patch TRDERM SCH (08:12)
[2020-09-06] MEDS: Enoxaparin 40 MG/0.4 ML Syringe SUBCUT SCH (08:12)
[2020-09-06] MEDS: Insulin Lispro 100 Units/ML 3 ML Vial SUBCUT SCH ×4 (08:13→12:07)
[2020-09-06 09:37] LABS: ANION GAP 8.9 mEq/L (7-13); CHLORIDE,CL 101 mmol/L (98-107); SODIUM,NA 137 mmol/L (136-145)
[2020-09-06] MEDS ORDERED: Piperacillin/Tazobactam 3.375 GM in Sodium Chloride 0.9% 100 ML IV SCH (12:00)
[2020-09-06] MEDS ORDERED: Iopamidol 612 MG/ML 100 ML Bottle IVPUSH ONE (13:18)
--- NOTE | 2020-09-06 13:20 | US ---
PROCEDURE INFORMATION: Exam: US Pelvis, Transvaginal Exam date and time: 09/04/2020 12:57 PM Age: 45 years old Clinical indication: Abnormal findings; Abnormal imaging test; Additional info: Probable hydrosalphinx. TECHNIQUE: Imaging protocol: Real-time transvaginal pelvic ultrasound with image documentation. Transvaginal imaging was used for better evaluation of the endometrium and adnexa. COMPARISON: CT Abdomen Pelvis w Cont 09/03/2020 9:22 PM FINDINGS: Uterus/cervix: on the transabdominal exam, The uterus measures 11.3 x 5.9 x 4.5 cm. Endometrial stripe is normal measuring 0.5 cm. On transvaginal exam an IUD is seen in the lower uterine segment. Right adnexa: The right ovary contains a large complex cyst with multiple areas mixed attenuation the appearance is suggestive of probably a hemorrhagic cyst or endometrioma. This lesion measures 3.6 x 3.4 x 3.2 cm. Left adnexa: There is fluid seen in the left adnexa region which is somewhat tubular in shape. The ovary itself is not identified. However there is echogenic areas seen in the left adnexal region which most likely represents bowel loops. No free fluid is identified in the cul-de-sac. IMPRESSION: Dilated tubular structure in the region of the left adnexa represent hydrosalpinx. However the ovary itself is not identified. Large complex right ovary measuring up to 3.6 cm suggestive of a hemorrhagic cyst or endometrioma. IUD in the lower uterine segment. Does the patient have symptoms of PID? There is no free in the cul-de-sac.
--- NOTE | 2020-09-06 13:44 | CT ---
PROCEDURE INFORMATION: Exam: CT Abdomen And Pelvis With Contrast Exam date and time: 09/06/2020 1:11 PM Age: 45 years old Clinical indication: Other: Persistent left abdominal pain. TECHNIQUE: Imaging protocol: Computed tomography of the abdomen and pelvis with intravenous contrast. Radiation optimization: All CT scans at this facility use at least one of these dose optimization techniques: automated exposure control; mA and/or kV adjustment per patient size (includes targeted exams where dose is matched to clinical indication); or iterative reconstruction. Contrast material: ISOVUE 300; Contrast volume: 75 ml; Contrast route: INTRAVENOUS (IV); COMPARISON: CT Abdomen Pelvis w Cont 09/03/2020 9:22 PM FINDINGS: Liver: Normal. No mass. Gallbladder and bile ducts: Again noted are small cholesterol stones in the lumen of the gallbladder. No inflammatory changes to the gallbladder. Pancreas: Normal. No ductal dilation. Spleen: Normal. No splenomegaly. Adrenals: Normal. No mass. Kidneys and ureters: Normal. No hydronephrosis. Stomach and bowel: Unremarkable. No obstruction. No mucosal thickening. Appendix: Normal diameter. No evidence of appendicitis. Intraperitoneal space: No free gas. No free fluid. Vasculature: Unremarkable. No abdominal aortic aneurysm. Lymph nodes: Unremarkable. No enlarged lymph nodes. Urinary bladder: Mural thickening of the bladder. This finding was present previously and may be somewhat worse in the interval. Reproductive: Again noted are complex densities in the bilateral pelvic adnexae. The abnormal density on the left measures 7.0 by 5.4 cm. The abnormal density on the right measures 4.5 by 4.0 cm. There are solid and cystic components. There is stranding in the adjacent mesentery. Findings correlate with an ultrasound performed September 04, 2020. Again noted is an intrauterine device. Bones/joints: Unremarkable. No acute fracture. Soft tissues: Unremarkable. IMPRESSION: 1. Complex densities in the bilateral pelvic adnexae. Differential considerations include tubo-ovarian abscesses, complex/hemorrhagic ovarian cysts, and endometriomas. If clinical concern remains, further evaluation with MRI is recommended. 2. Mural thickening of the urinary bladder may represent acute or chronic cystitis. The sequela of chronic bladder outlet obstruction or chronic bladder stasis is possible. 3. Cholesterol gallstones without evidence of cholecystitis. If clinical concern exists, further evaluation with ultrasound is recommended.
[2020-09-06] MEDS ORDERED: cefOXitin 2 GM in Sodium Chloride 0.9% 50 ML IV SCH (15:00)
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
[2020-09-06] MEDS ORDERED: Doxycycline 100 MG in Sodium Chloride 0.9% 100 ML IV SCH (21:00)
[2020-09-07 11:47] LABS: C.TRACHOMATIS BY TMA Negative (Negative); N.GONORRHOEAE BY TMA Negative (Negative)
== END 2020-09-06 15:38 ==
LOC: DL.ED 20:04 → DL.MS 23:20 → INTOOBSV 23:20 → DL.ED 23:35 → UNDOADMIN 23:53 → DL.MS 23:53
PROVIDERS: ADMIT Internal Medicine; ATTEND Internal Medicine
DX: K57.92 Diverticulitis of intestine, part unspecified, without perforation or abscess without bleeding (principal); E11.40 Type 2 diabetes mellitus with diabetic neuropathy, unspecified; F41.9 Anxiety disorder, unspecified; F17.210 Nicotine dependence, cigarettes, uncomplicated; E11.65 Type 2 diabetes mellitus with hyperglycemia; N73.9 Female pelvic inflammatory disease, unspecified; R82.5 Elevated urine levels of drugs, medicaments and biological substances; N39.0 Urinary tract infection, site not specified; Z79.4 Long term (current) use of insulin; Z79.82 Long term (current) use of aspirin; Z79.899 Other long term (current) drug therapy; Z20.828 Contact with and (suspected) exposure to other viral communicable diseases
CPT/HCPCS: 36415; 74177; 76830; 76857; 80048; 80053; 80076; 80305; 81001; 82962; 83605; 83735; 84100; 85025; 85027; 87040; 87086; 87088; 87186; 87210; 87389; 87491; 87591; 87635; 96361; 96365; 96366; 96367; 96372; 96375; 96376; 99285; A9270; G0378; J0694; J0696; J1170; J1650; J1815; J2405; J2543; J7030; J7050; Q9967; U0002